=== PATIENT | female | born 1945 | race Caucasian/White ===

== ENCOUNTER 2023-11-16 12:44 | Outpatient (OUT) | payer MEDICARE, OTHER, SELFPAY ==
--- NOTE | 2023-11-16 13:02 | CT_ITS ---
[address] [address] Patient Name: ASHU SANDRA MRN: [id number] date: 1945 Sex: F Assigned Patient Location: LAB Current Patient Location: LAB Accession/Order Number: [id number] Exam Date: 11/16/2023 14:00 Report Date: 11/16/2023 15:22 At the request of: HAWK DE LA PAZ Procedure: CT abdomen pelvis wo con EXAM: CT abdomen pelvis wo con HISTORY: Incisional Hernia Without Obstruction COMPARISON: None. TECHNIQUE: CT abdomen pelvis wo con FINDINGS: LOWER CHEST: LUNG BASES / PLEURA: Normal. DISTAL ESOPHAGUS: Normal. HEART / VESSELS: No significant abnormality. ABDOMEN and PELVIS: LIVER: Normal given the limitations of noncontrast CT. BILIARY TRACT: Normal. GALLBLADDER: No abnormality. PANCREAS: Normal. SPLEEN: Normal. ADRENALS: Normal. KIDNEYS: Normal given limitations of noncontrast CT. No stone or hydroureteronephrosis. LYMPH NODES: None enlarged. STOMACH / SMALL BOWEL: There are multiple contrast-filled loops of normal caliber small bowel which extends through a large ventral abdominal wall defect. No evidence of strangulation or obstruction. The luminal contrast within small bowel extends distal to the herniated loops. 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 Large ventral abdominal wall defect containing a loop of the transverse colon without evidence of strangulation or obstruction. PERITONEUM / MESENTERY: No free fluid or air. RETROPERITONEUM: Normal. VESSELS: Moderate atherosclerotic disease of the normal caliber abdominal aorta and its major branches. URINARY BLADDER: Normal. REPRODUCTIVE ORGANS: The uterus is not visualized. There is no adnexal mass. BODY WALL: As mentioned above, there are multiple large ventral abdominal wall/incisional defects. The more cranial defect containing a loop of transverse colon measures 8.1 cm (image 26 of series 3) and the more caudal defect containing loops of small bowel measures 5.6 cm (image 75 of series 3). There is also rectus abdominis diastases at the level of the umbilicus and a small fat-containing umbilical hernia. MUSCULOSKELETAL: No acute abnormality. Grade 1 anterolisthesis of L4 on L5. CT/CT abdomen pelvis wo con IMPRESSION: Multiple large ventral abdominal wall/incisional hernias containing loops of transverse colon and small bowel without strangulation or obstruction. Electronically authenticated by: DAYNE COPELAND Date: 11/16/2023 15:22
[2023-11-16 13:14] LABS: Estimated GFR (African America 60 (>=60); Estimated GFR (Non-African Ame 49 (>=60)
== END 2023-11-16 12:45 | disposition home or self-care (01) ==
PROVIDERS: PCP Family Medicine; Visit Provider Surgery
DX: Z01.812 Encounter for preprocedural laboratory examination (principal); K43.2 Incisional hernia without obstruction or gangrene
CPT/HCPCS: 36415; 74176; 82565

== ENCOUNTER 2024-03-16 17:58 | Inpatient (IN) | payer MEDICARE, OTHER, SELFPAY ==
[2024-03-16] VITALS (12 sets, daily range): BP systolic 126–159; BP diastolic 53–70; PULSE 69–86; TEMP 37–38.4; O2SAT 92–94; BMI 31.9; BMI 31.0
--- NOTE | 2024-03-16 18:01 | ED_ITS ---
HPI HPI - General Adult General Chief complaint: Nausea/Vomiting/Diarrhea Stated complaint: NAUSEA/VOMITING Time Seen by Provider: 03/16/24 18:00 Source: patient and family History of Present Illness HPI narrative: This patient brought to emergency room by EMS vishal. She has been feeling under the weather for the last couple days with fever nausea decreased appetite. She is not oxygen dependent but because of decreased pulse oximetry to squad applied oxygen when they picked her up and brought her here to the ER. She asked clear for 5 to sick for nearly 1 week. She self diagnosed herself of having urinary tract infection because she had frequency of urination burning and the foul smell to the urine she took some [id number] pain medication but is not taking any antibiotics. She states she has a history of kidney stones and kidney infections. She says she is borderline diabetic. She has COPD. She denies any previous cardiac problems. She has mild nausea at this time. She has not had sore throat cough congestion or head cold symptoms. Related Data Home Medications ?Medication ?Instructions ?Recorded ?Confirmed candesartan 32 mg tablet 16 mg PO BID 03/16/24 03/16/24 carvedilol 25 mg tablet 25 mg PO BID 03/16/24 03/16/24 clopidogrel 75 mg tablet 75 mg PO DAILY 03/16/24 03/16/24 fluoxetine 40 mg capsule 40 mg PO DAILY 03/16/24 03/16/24 montelukast 10 mg tablet 10 mg PO DAILY 03/16/24 03/16/24 rosuvastatin 40 mg tablet 40 mg PO DAILY 03/16/24 03/16/24 trazodone 50 mg tablet 50 mg PO QPM 03/16/24 03/16/24 Allergies Allergy/AdvReac Type Severity Reaction Status Date / Time Penicillins Allergy Severe Cramping Verified 03/16/24 18:01 of the Muscles Sulfa (Sulfonamide Allergy Severe Swelling Verified 03/16/24 18:01 Antibiotics) of Lip/Tongue/Throat Opioid HPI Opioid Management Most Recent Opioid Data: No Data to Display Exam Narrative Exam Narrative: She was seen on arrival. Vital signs were noted. Her has just arrived. She is awake alert [place] x 3 very good historian. She looks ill but not toxic. Her skin is warm and dry with no cyanosis clamminess or diaphoresis. She has good pulses. She does not have hypotension. HEENT shows no focus of infection, no conjunctivitis or pharyngitis phonation and voice are normal. Neck is soft supple she does not have a severe headache or neck pain. Lungs were clear clear with no wheeze rales or rhonchi. Heart sounds show a grade 2/6 to 3/6 systolic murmur at the apex. Abdomen is benign with no rebound rigidity or peritoneal findings. Her extremities do not show any petechia purpura rash or exanthem. She has no swelling of her extremities. They are warm and dry. Neurological examination shows no focal neurological deficits or motor weaknesses. Constitutional Vital Signs, click to edit/add: Last Vital Signs Temp 101.1 F H 03/16/24 18:01 Pulse 85 03/16/24 18:01 Resp 20 03/16/24 18:01 BP 159/65 H 03/16/24 18:01 Pulse Ox 92 L 03/16/24 18:01 O2 Del Method Room Air 03/16/24 18:01 Course Vital Signs Vital signs: Vital Signs Temperature 101.1 F H 03/16/24 18:01 Pulse Rate 85 03/16/24 18:01 Respiratory Rate 20 03/16/24 18:01 Blood Pressure 159/65 H 03/16/24 18:01 Pulse Oximetry 92 L 03/16/24 18:01 Oxygen Delivery Method Room Air 03/16/24 18:01 Temperature 101.1 F H 03/16/24 18:01 Pulse Rate 85 03/16/24 18:01 Respiratory Rate 20 03/16/24 18:01 Blood Pressure 159/65 H 03/16/24 18:01 Pulse Oximetry 92 L 03/16/24 18:01 Oxygen Delivery Method Room Air 03/16/24 18:01 Medical Decision Making [facility] Narrative Medical decision making narrative: Patient presents with fever [place] fatigue decreased appetite and symptoms consistent with a UTI. Sepsis workup initiated but initially only 1 L will be given pending other laboratory evaluation. IVs were established and she was given intravenous Rocephin. Care will be turned over to the next physician at the change of shift at 1900 hrs. Initial laboratory studies show findings consistent with a UTI. Because of her history of kidney stones we will get a CT to rule out any type of obstructive phenomenon Lab Data Labs: Lab Results 03/16/24 03/16/24 Range/Units 18:05 18:25 WBC 10.9 (4.0-11.0) 10^3/uL RBC 4.30 (4.20-5.40) 10^6/uL Hgb 13.0 (12.0-16.0) g/dL Hct 39.9 (36.0-48.0) % MCV 92.8 (81.0-99.0) fL MCH 30.2 (26.7-34.0) pg MCHC 32.6 (29.9-35.2) g/dL RDW 12.6 (11.0-15.0) % Plt Count 139 L (150-450) 10^3/uL MPV 11.0 (9.5-13.5) fL Seg Neuts % (Manual) 82.0 Band Neutrophils % 9.0 H (0-5) % Lymphocytes % (Manual) 3.0 L (20.5-60.0) % Monocytes % (Manual) 5.0 (1.7-12.0) % Eosinophils % (Manual) 0.0 L (0.9-7.0) % Basophils % (Manual) 1.0 (0.2-2.0) % Neutrophils # (Manual) 8.93 H (1.4-6.5) 10^3/uL Band Neutrophils # 1.0 H (0.0-0.3) 10^3/uL Lymphocytes # (Manual) 0.32 L (1.20-3.80) 10^3/uL Monocytes # (Manual) 0.54 (0.30-0.80) 10^3/uL Eosinophils # (Manual) 0.00 (0.00-0.70) 10^3/uL Basophils # (Manual) 0.10 (0.00-0.10) 10^3/uL PT 11.7 H (9.0-11.6) sec INR 1.12 D-Dimer 2.04 H* (<=0.59) mg/L FEU VBG pH 7.485 H (7.330-7.430) VBG pCO2 32.7 L (40.0-52.0) mmHg Sodium 136 (136-145) mmol/L Potassium 4.0 (3.5-5.1) mmol/L Chloride 101 (98-107) mmol/L Carbon Dioxide 25.9 (21.0-32.0) mmol/L Anion Gap 13.1 BUN 28.0 H (7.0-18.0) mg/dL Creatinine 1.41 H (0.55-1.02) mg/dL Est GFR ( Amer) 44 L (>=60) Est GFR (Non-Af Amer) 36 L (>=60) BUN/Creatinine Ratio 19.9 Glucose 142 H (74-106) mg/dL Lactate 1.4 (0.4-2.0) mmol/L Calcium 9.0 (8.5-10.1) mg/dL Total Bilirubin 1.7 H (0.2-1.0) mg/dL AST 15 (15-37) U/L ALT 24 (14-59) U/L Alkaline Phosphatase 54 (46-116) U/L Troponin I High Sens 6.8 (4.0-51.3) pg/mL Total Protein 6.5 (6.4-8.2) g/dL Albumin 2.8 L (3.4-5.0) g/dL Globulin 3.7 g/dL Albumin/Globulin Ratio 0.8 Procalcitonin 5.92 H (0.00-0.50) ng/mL Urine Color Yellow (YELLOW) Urine Clarity Sl cloudy (CLEAR) Urine pH 6.0 (5.0-9.0) Ur Specific [place] 1.025 (1.005-1.025) Urine Protein 100 A (NEG/TRACE) mg/dL Urine Glucose (UA) Negative (NEGATIVE) mg/dL Urine Ketones Negative (NEGATIVE) mg/dL Urine Occult Blood Large A (NEGATIVE) Urine Nitrite Positive A (NEGATIVE) Urine Bilirubin Negative (NEGATIVE) Urine Urobilinogen 1.0 (0.2-1.0) EU/dL Ur Leukocyte Esterase Small A (NEGATIVE) Urine RBC 20-50 A (0-2) #/HPF Urine WBC 5-10 A (NONE SEEN) #/HPF Ur Squamous Epith Cells Few A (NONE/RARE) #/LPF Urine Crystals None seen (None Seen) #/HPF Urine Bacteria Moderate A (NONE SEEN) #/HPF Urine Casts None seen (NONE SEEN) #/LPF Urine Mucus None seen (NONE SEEN) Ur Culture Indicated? Already ordered Discharge Plan Discharge Chief Complaint: Nausea/Vomiting/Diarrhea Clinical Impression: Sepsis Patient Disposition: Still a Patient Prescriptions / Home Meds: No Action candesartan 32 mg tablet 16 mg PO BID carvedilol 25 mg tablet 25 mg PO BID clopidogrel 75 mg tablet 75 mg PO DAILY fluoxetine 40 mg capsule 40 mg PO DAILY montelukast 10 mg tablet 10 mg PO DAILY rosuvastatin 40 mg tablet 40 mg PO DAILY trazodone 50 mg tablet 50 mg PO QPM Print Language: Nigerien Referrals: WILLIAM DURHAM [Physician] - 1 week
--- NOTE | 2024-03-16 18:01 | ECG_ITS ---
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
--- NOTE | 2024-03-16 18:01 | XR_ITS ---
[address] [address] Patient Name: ASHU SANDRA MRN: [id number] date: 1945 Sex: F Assigned Patient Location: ER Current Patient Location: ED.MAIN Accession/Order Number: [id number] Exam Date: 03/16/2024 18:40 Report Date: 03/16/2024 19:46 At the request of: JULI GARCIA Procedure: XR chest 2V EXAMINATION: XR chest 2V, , 03/16/2024 6:40 PM EDT INDICATION: Sepsis HISTORY: Ordering Provider Reason for Exam: Sepsis Technologist Note: Additional: COMPARISON: None. TECHNIQUE: Chest x-ray: Two views. FINDINGS: No pneumothorax, pleural effusion or focal airspace consolidation. Heart is normal in size. Bony thorax is unremarkable. XR/XR chest 2V IMPRESSION: No acute cardiopulmonary process. Electronically authenticated by: GEORGI RODRIGUES Date: 03/16/2024 19:46
--- OUTSIDE RECORDS SUMMARY | 2024-03-16 18:04 | XMS_ITS ---
Patient Summarization (C-CDA 2.1 CCD) Created on: March 16, 2024 Sandra Mrs. Maryam Wright : 1945 Sex: Female Author Organization Sample organization Care Team Providers Care Wire Harness Assembler Name Role Phone SYMONE, DOCTOR Admitting Unavailable SYMONE, DR REIS Attending Unavailable DR WILLIAM DURHAM Primary Care Unavailable FLETCHER BARTON JR Primary Care Physician Unavailable Primary Care Provider Taras grier Unavailable Primary Care Provider ZACHERY Becerra Attending HAWK Hardy Referring Unavailable FLETCHER BARTON Referring Hawk Angeles Attending Unavailable Allergies Allergy Classification Reported Allergen(s) Allergy Type Date of Onset Reaction(s) Facility (2 sources) cloNIDine; Translations: [Catapres] Drug Allergy 4 [facility] Repository (2 sources) Penicillins; Translations: [PENICILLINS] Drug allergy (disorder) 4 [facility] Repository (1 source) Sulfonamides (Antibiotic) Drug allergy (disorder) 4 [facility] Repository (1 source) cloNIDine; Translations: [clonidine] Drug Allergy [facility] [place] (2 sources) Penicillin; Translations: [penicillin] Drug Allergy Finding of gross movement of body and limbs (finding) [facility] [place] (2 sources) Sulfonamides (Antibiotic); Translations: [sulfa drugs] Propensity to adverse reactions to drug Edema of the tongue (disorder) [facility] [place] (2 sources) Penicillins Drug Allergy 4 Anaphylaxis [facility] (3 sources) Sulfonamides (Antibiotic); Translations: [SULFA (SULFONAMIDE ANTIBIOTICS)] Drug Allergy 4 Swelling [facility] Encounters Encounter Date Encounter Type Care Provider Facility Start: 01-05-2024 ambulatory Zachery Kiser MD Work Phone: [facility] Comment on above: 05.08.24 Cure (Robot ic Complex AWR 5 hours los 2) Start: 01-05-2024 Preprocedural examin ation done Zachery Kiser MD Work Phone: [facility] Start: 01-04-2024 End: 01-05-2024 ambulatory ZACHERY KISER Facility:[facility] Start: 01-04-2024 End: 01-04-2024 Patient encounter procedure Zachery Kiser MD Work Phone: General Surgery Comment on above: Incisional hernia, w ithout obstruction or gangrene (Primary Dx) Start: 12-22-2023 Telephone encounter Eder KHALIL General Surgery Comment on above: Clinic Prep Start: 11-16-2023 Clinisync Result Encounter Generic External Data Provider [facility] External Department Unsolicited Start: 11-16-2023 Clinisync Result Encounter Generic External Data Provider [facility] External Department Unsolicited Start: 10-10-2023 End: 10-11-2023 ambulatory FLETCHER BARTON [facility] Start: 10-10-2023 End: 10-10-2023 Patient encounter procedure Hawk ALTAMIRANO General [facility] Start: 09-28-2023 ambulatory FLETCHER BARTON [facility] Start: 08-17-2021 End: 08-17-[address] DOCTOR ASHBY Facility:[facility] Immunizations Immunization Date Immunization Notes Care Provider Fa cilielan 08-09-2021 SARS-CoV-2 (COVID-19 ) mRNA-1273 vaccine Hakw ALTAMIRANO [facility] [place] 12-23-2020 SARS-CoV-2 (COVID-19 ) mRNA-1273 vaccine Hawk LEWISL [facility] [place] 11-25-2020 SARS-CoV-2 (COVID-19 ) mRNA-1273 vaccine Hawk NILL [facility] [place] NEGATED: Highlighted row has not occurred!10-10-2023 influenza virus vaccine, unspecified formulation Hawk ALTAMIRANO [facility] [place] Medications Current Medications Medication Drug Class(es) Dates Sig (Normalized) Sig (Original) acarbose 100 mg oral tablet (1 source) alpha-Glucosidase Inhibitor Start: 09-29-2023 take 1 tablet by mouth twice daily acarbose 100 mg oral tablet 100 mg = 1 tab(s), Oral, BID, Refills(s) 0 Start Date: 09/29/23 Status: Ordered budesonide 0.25 mg/ml inhalation suspension (1 source) Corticosteroid Start: 09-29-2023 take 0.5 mg by inhalation twice daily budesonide 0.5 mg/2 mL Inh Susp 0.5 mg = 2 mL, NEB, BID, Refills(s) 0 Start Date: 09/29/23 Status: Ordered candesartan cilexetil 32 mg oral tablet (3 sources) Angiotensin 2 Receptor Akira Start: 09-29-2023 Atacand 32 mg Tab 16 mg = 0.5 tab(s), Oral, BID, Refills(s) 0 Start Date: 09/29/23 Status: Ordered candesartan cile xetil (ATACAND ORAL) Take by mouth. 0 Active Comment on above: Take by mouth. carvedilol 25 mg oral tablet (3 sources) alpha-Adrenergic Akira, beta-Adrenergic Akira Start: 09-29-2023 take 1 tablet by mouth twice daily carvedilol 25 mg Tab 25 mg = 1 tab(s), Oral, BID, Refills(s) 0 Start Date: 09/29/23 Status: Ordered carvedilol (CORE G ORAL) Take by mouth. 0 Active Comment on above: Take by mouth. clopidogrel 75 mg oral tablet (3 sources) P2Y12 Platelet Inhibitor Start: 09-29-2023 take 1 tablet by mouth once daily Plavix 75 mg Tab 75 mg = 1 tab(s), Oral, Daily, Refills(s) 0 Start Date: 09/29/23 Status: Ordered clopidogrel bisu lfate (PLAVIX ORAL) Take by mouth. 0 Active Comment on above: Take by mouth. dapagliflozin 10 mg oral tablet (1 source) Sodium-Glucose Cotransporter 2 Inhibitor Start: Farxiga 10 mg oral tablet 10 mg = 1 tab(s), Oral, MonWedFri, Refills(s) 0 Start Date: 09/29/23 Status: Ordered ezetimibe 10 mg oral tablet (3 sources) Dietary Cholesterol Absorption Inhibitor Start: 3 take 5 mg by mouth once daily Zetia 10 mg Tab 5 mg = 0.5 tab(s), Oral, Daily, Refills(s) 0 Start Date: 09/29/23 Status: Ordered ezetimibe (ZETIA ORAL) Take by mouth. 0 Active Comment on above: Take by mouth. FLUoxetine 20 mg oral capsule (3 sources) Serotonin Reuptake Inhibitor Start: 09-29-2023 take 1 capsule by mouth once daily Prozac 20 mg Cap 20 mg = 1 cap(s), Oral, Daily, Refills(s) 0 Start Date: 09/29/23 Status: Ordered fluoxetine HCl ( PROZAC ORAL) Take by mouth. 0 Active Comment on above: Take by mouth. fluticasone propionate 0.05 mg/actuat metered dose nasal spray (1 source) Corticosteroid Start: 3 Flonase 0.05 mg/inh [place] 2 puff(s), Nasal, BID, Refill(s) 0 Start Date: 09/29/23 Status: Ordered montelukast 10 mg oral tablet (3 sources) Leukotriene Receptor Antagonist Start: 3 take 1 tablet by mouth once daily Singulair 10 mg Tab 10 mg = 1 tab(s), Oral, Daily, Refills(s) 0 Start Date: 09/29/23 Status: Ordered montelukast sodi um (SINGULAIR ORAL) Take by mouth. 0 Active Comment on above: Take by mouth. revefenacin 0.0583 mg/ml inhalation solution (1 source) Start: 3 take 175 ug by inhalation once daily Yupelri 175 mcg/3 mL inhalation solution 175 mcg, Inhalation, Daily, Refills(s) 0 Start Date: 09/29/23 Status: Ordered rosuvastatin calcium 40 mg oral tablet (3 sources) HMG-CoA Reductase Inhibitor Start: 3 take 1 tablet by mouth once daily Crestor 40 mg Tab 40 mg = 1 tab(s), Oral, Daily, Refills(s) 0 Start Date: 09/29/23 Status: Ordered take 1 tablet by mouth once dana y rosuvastatin (CRESTOR) 10 mg tablet Take 10 mg by mouth once daily. 0 Active Comment on above: Take 10 mg by mouth once daily. traZODone hydrochloride 50 mg oral tablet (3 sources) Serotonin Reuptake Inhibitor Start: take 1 tablet by mouth once daily at bedtime traZODONE 50 mg Tab 50 mg = 1 tab(s), Oral, Once a day (at bedtime), Refills(s) 0 Start Date: 09/29/23 Status: Ordered trazodone HCl (D ESYREL ORAL) Take by mouth. 0 Active Comment on above: Take by mouth. Vitamin D3 2000 intl units oral Tab (1 source) Start: 09-29-2023 take 1 tablet by mouth once daily Vitamin D3 2000 intl units oral Tab 50 mcg, Oral, Daily, tab(s), Refills(s) 0 Start Date: 09/29/23 Status: Ordered Completed/Discontinued Medications Medication Drug Class(es) Dates Sig (Normalized) Sig (Original) cholecalciferol 0.125 mg oral tablet (2 sources) Vitamin D take 1 tablet by mouth once daily cholecalciferol (VITAMIN D-3) 5,000 unit tab Take 5,000 Units by mouth once daily. 0 Active Comment on above: Take 5,000 Units by mouth once daily. Payers Date Payer Category Payer Unknown MMO MMO MEDICARE SUPPLEMENT [id number] 2021-Present [phone] [address] [place] [address] Indemnity [id number] 2017 Medicare [id number] 2011 Medicare MEDICARE MEDICAR E A AND B [id number] 2011-Present [phone] [address] [address] [place] [address] Medicare [id number] 1959 Medicare [id number] 1959 Unknown [id number] 1945 Unknown [id number] 1945 Unknown [id number] 1945 Unknown [id number] Plan of Treatment Date Care Activity Detail Author Start: 02-05-2024 End: 06-16-2024 aPTT in Platelet poor plasma by Coagulation assay ACTIVATED PTT Lab Routine Preoperative examination Incisional hernia, without obstruction or gangrene Abnormal coagulation profile Expected: 02/05/2024, Expires: 06/16/2024 [facility] Work Phone: Comment on above: Expected: 02/05/2024 , Expires: 06/16/2024 Start: 02-05-2024 End: 06-16-2024 CBC W Auto Differential panel - Blood CBC + DIFF Lab Routine Preoperative examination Incisional hernia, without obstruction or gangrene Expected: 02/05/2024, Expires: 06/16/2024 [facility] Work Phone: Comment on above: Expected: 02/05/2024 , Expires: 06/16/2024 Start: 02-05-2024 End: 06-16-2024 Comprehensive metabolic 2000 panel - Serum or Plasma COMP METABOLIC PANEL Lab Routine Preoperative examination Incisional hernia, without obstruction or gangrene Expected: 02/05/2024, Expires: 06/16/2024 [facility] Work Phone: Comment on above: Expected: 02/05/2024 , Expires: 06/16/2024 Start: 02-05-2024 End: 06-16-2024 PT panel - Platelet poor plasma by Coagulation assay PROTHROMBIN TIME/PT Lab Routine Preoperative examination Incisional hernia, without obstruction or gangrene Abnormal results of liver function studies Expected: 02/05/2024, Expires: 06/16/2024 [facility] Work Phone: Comment on above: Expected: 02/05/2024 , Expires: 06/16/2024 Start: 02-05-2024 End: 06-16-2024 TYPE AND SCREEN,30 DAY TYPE AND SCREEN,30 DAY Blood Bank Routine Preoperative examination Incisional hernia, without obstruction or gangrene Expected: 02/05/2024, Expires: 06/16/2024 [facility] Work Phone: Comment on above: Expected: 02/05/2024 , Expires: 06/16/2024 Start: 10-16-2023 Advance Directive Discussion Advance Directive Discussion [facility] Start: 10-16-2023 Depression Assessment Depression Ass essment [facility] Start: 06-16-2023 Covid-19 Vaccine () Covid-19 Vaccine () [facility] Start: 06-16-2023 Influenza vaccination Influenza Vacc ine (#1) [facility] Start: 01-01-2012 Pneumococcal Vaccine : 65+ (1 of 1 - PCV) Pneumococcal Vaccine: 65+ (1 of 1 - PCV) [facility] Start: 01-01-2012 Screening for osteoporosis Bone Density Screening [facility] Start: 2006 RSV Vaccine (1 - 1-d ose 60+ series) RSV Vaccine (1 - 1-dose 60+ series) [facility] Start: 1996 Shingrix Vaccine (1 of 2) Shingrix Vaccine (1 of 2) [facility] Start: 01-01-1992 Diabetes Screening Diabetes Screenin g [facility] Start: 1965 Urine microalbumin profile DTaP,Tdap,Td Vaccine (1 - Tdap) [facility] Start: 1964 Hepatitis C screening Hepatitis C Sc bj [facility] Start: 07-03-1947 Covid-19 Vaccine (#1) Covid-19 Vacci ne (#1) [facility] End: 01-04-2025 ECG COMPLETE ECG COMPLETE ECG Routine Preoperative examination Incisional hernia, without obstruction or gangrene 1 Occurrences starting 01/08/2024 until 01/04/2025 [facility] Work Phone: Comment on above: 1 Occurrences starti ng 01/08/2024 until 01/04/2025 REFER FOR ADMIT INTERVIEW REFER FOR ADMIT INTERVIEW Procedures Routine Preoperative examination Incisional hernia, without obstruction or gangrene Ordered: 01/08/2024 [facility] Work Phone: Comment on above: Ordered: 01/08/2024 [facility] Problems Problem Classification Problem Date Documented Date Episodic/Chronic Abdominal hernia (5 sources) Incisional hernia; Translations: [Incisional hernia without obstruction or gangrene] Onset: 10-10-2023 Episodic Chronic obstructive pulmonary disease and bronchiectasis (1 source) Chronic obstructive lung disease 09-29-2023 Chronic Diabetes mellitus without complication (1 source) Diabetes mellitus 09-29-2023 Chronic Disorders of lipid metabolism (1 source) Hyperlipidemia 09-29-2023 Chronic Esophageal disorders (1 source) Gastroesophageal reflux disease 09-29-2023 Chronic Essential hypertension (1 source) Hypertensive disorder 09-29-2023 Chronic Mood disorders (1 source) Depressive disorder 09-29-2023 Chronic Nutritional deficiencies (1 source) Vitamin D deficiency 09-29-2023 Chronic Other diseases of kidney and ureters (1 source) Cyst of kidney 09-29-2023 Episodic Other nutritional; endocrine; and metabolic disorders (1 source) Body mass index 30+ - obesity 10-10-2023 Chronic Other nutritional; endocrine; and metabolic disorders (1 source) Obesity 10-10-2023 Chronic Other screening for suspected conditions (not mental disorders or infectious disease) (6 sources) Encounter for screening, unspecified; Translations: [Liver function tests abnormal] Onset: 08-17-2021 Episodic Other upper respiratory disease (1 source) Allergic rhinitis 09-29-2023 Chronic Peripheral and visceral atherosclerosis (1 source) Abdominal aortic atherosclerosis 09-29-2023 Chronic Residual codes; unclassified (1 source) Insomnia 09-29-2023 Episodic Procedures Date Procedure Procedure Detail Performing Clinician Start: 11-16-2023 [facility] CREATININE Generic External Data Provider Start: 10-16-2013 Placement of stent i n coronary artery Hawk ALTAMIRANO Excision of cyst of ovary Mi yakov BRAIN Extraction of cataract Oscar micheal ALTAMIRANO Intestinal obstructi on (disorder) Hawk ALTAMIRANO Results Test Name Value Interpretation Reference Range Facility Consultation Noteon 01-14-20 24 Consultation Note [id number] .00TIFF Normal [facility] CNOVon 01-04-2024 CNOV Office Visit (PEDRO ) MARYAM SANDRA ([id number]) 1945 F Date Time Provider Department 01/04/24 1:00 PM ZACHERY KISER During your visit today, we recorded the following information about you: Temperature Pulse Blood pressure Weight 97.4 degrees 68/minute 197/82 66.2 kg Height 1.499 m Christy Yoder 01/04/2024 1:57 PM Signed [facility] Abdominal [facility] - HISTORY AND PHYSICAL Chief Complaint: Ventral Incision Hernia HPI: Maryam Sandra is a 78 year old female who presents with a ventral incision hernia. She has a history of uterine cancer with subsequent RADHA and oopherectomy in 1973. Additionally in 2013, she was diangosed with a bowel obstruction after a routine colonoscopy with subsequent left hemicolectomy with splenic mobilization and salpingoopherectomy. Patient states that there was no cancer of the colon. She states that she noticed a left lower abdominal bulge immediately after this surgery, with development of another bulge one year ago. She received a CAT scan which demonstrated sizable hernias. She reports no pain near sites of hernia until last week where she now feels soreness in the lower left quadrant. The upper left quadrant sometimes causes her to be short of breath when she is bent over. No N/V, no issue with bowel movement, or urination (sometimes has trouble emptying bladder). She is currently on Plavix after coronary artery stent placement in 2013. PMH: COPD, hx of uterine cancer, abdominal aortic atherosclerosis, coronary artery stent, elevated BMI, depression, HTN, HLD Relevant previous operations include: RADHA + oopherectomy in 1973, ex-lap, salpingoopherectomy + left hemicolectomy with splenic mobilization in 2013, coronary artery stent in 2013 Major Depression, on Prozac. Independent No employment None Hypertension, COPD, Anti-platelet medications History of open abdomen No past medical history on file. No past surgical history on file. Social History Tobacco Use Smoking status: Former Types: Cigarettes Quit date: 1983 Years since quittin.2 Substance Use Topics Alcohol use: Never Drug use: Never Additional social history not relevant to the patient's HPI No family history on file. Additional family history not relevant to the patient's HPI ALLERGIES Allergen Reactions Penicillins Anaphylaxis seizures Sulfa (Sulfonamide * Swelling Tongue swelling Current Outpatient Medications Medication Sig Dispense Refill rosuvastatin (CRESTOR) 10 mg tablet Take 10 mg by mouth once daily. trazodone HCl (DESYREL ORAL) Take by mouth. ezetimibe (ZETIA ORAL) Take by mouth. carvedilol (COREG ORAL) Take by mouth. candesartan cilexetil (ATACAND ORAL) Take by mouth. clopidogrel bisulfate (PLAVIX ORAL) Take by mouth. montelukast sodium (SINGULAIR ORAL) Take by mouth. fluoxetine HCl (PROZAC ORAL) Take by mouth. cholecalciferol (VITAMIN D-3) 5,000 unit tab Take 5,000 Units by mouth once daily. No current facility-administered medications for this visit. REVIEW OF SYSTEMS The remainder of the 12 review of systems is negative other than what was mentioned in the HPI and above. BP 197/82 Pulse 68 Temp 36.3 ?C (97.4 ?F) (Tympanic) Ht 149.9 cm (4' 11 ) Wt 66.2 kg (146 lb) BMI 29.49 kg/m? Physical Exam Constitutional: The patient is well-developed, well-nourished, and in no distress. Head and Neck: Normocephalic and atraumatic. Neck has normal range of motion. Pulmonary/Chest: Effort normal Abdominal: Soft. Two abdominal bulges are present in upper and lower left quadrants, with another bulge present in right lower quadrant below abdominal skin fold. Musculoskeletal: Normal range of motion. Neurological: She is alert. GCS score is 15. Skin: Skin is warm and dry. Psychiatric: Affect and judgment normal. Relevant Hernia Findings - Two abdominal bulges are present in upper and lower left quadrants, with another bulge present in right lower quadrant below abdominal skin fold. LABS: No results found for: HBA1C IMAGING - Reviewed with staff CT - 11/16/23: Per radiology report Large ventral abdominal wall defect containing a loop of the transverse colon without evidence of strangulation or obstruction Assessment: Maryam Sandra is a 78 year old female with PMH of coronary artery stent placement (on Plavix), COPD, HTN, hx of uterine cancer who presents with multiple ventral incisional hernias. She states that symptoms she is experiencing include abdominal soreness and shortness of breath while bent over. She would like to pursue surgery, but specifically wanted to approach it via robot. Patient was advised that a robotic surgery is possible, but that there was potential to covert to an open approach if necessary. Patient agreed and consent for surgery was obtained. Plan: - Abdom (more content not included)... Normal [facility] CNPNon 12-22-2023 CNPN Telephone (PEDRO) MARYAM SANDRA ([id number]) 1945 F Date Time Provider Department 12/22/23 EDER MELARA During your visit today, we recorded the following information about you: Eder Melara OCCA 12/22/2023 1:02 PM Signed Called patient to request recent imaging and PSHx. Patient has CT at [place] (faxed request for imaging to be pushed), surgeries were performed at [place]. Faxed request for reports. Jean Melara EMT-P, OCCA Buettner, William, OCCA 12/22/2023 3:37 PM Signed Received 1 operative note from [place], sent for scanning. Jean Melara EMT-P, OCCA Allergies As of Date: 12/22/2023 (Not on File) Date Reviewed: Never Reviewed Reason for Visit: Clinic Prep [Other] Problem List As Of Date: 12/22/2023 (None) Encounter Status:Closed by EDER MELARA on 12/22/23 Normal [facility] RAD - CT Reporton 11-24-2023 RAD - CT Report [id number] .00TIFF Normal [facility] Lab Reportson 11-21-2023 Lab Reports [id number] .00TIFF Normal [facility] TB CREATININEon 11-16-2023 Creatinine [Mass/Vol] 1.08 mg/dL High 0.55 - 1.02 mg/dL [facility] GFR/1.73 sq M.predicted CKD-EPI (S/P/Bld) [Vol rate/Area] 60 60 - PINF [facility] Interpretation and review of laboratory results Abnormal [facility] Healthcare [facility] EGFR-NON AF MALAGASY 49 Low 60 - PINF [facility] Healthcare [facility] Healthcar e Facesheeton 10-11-2023 Facesheet [id number] .00TIFF Normal [facility] Ambulatory Visit Summaryon 1 12-11-2022 Ambulatory Visit Summary SANDRA MARYAM L :1945 Visit Date:10/10/2023 Ambulatory Visit Instructions Your Care Team Attending Physician - Hawk ALTAMIRANO MD Primary Care Physician - FLETCHER BARTON JR, DO Referring Physician - FLETCHER BARTON JR, DO This Is Your Medications List Contact prescribing physician if questions or concerns acarbose (acarbose 100 mg oral tablet) budesonide (budesonide 0.5 mg/2 mL Inh Susp) candesartan (Atacand 32 mg Tab) carvedilol (carvedilol 25 mg Tab) cholecalciferol (Vitamin D3 2000 intl units oral Tab) clopidogrel (Plavix 75 mg Tab) dapagliflozin (Farxiga 10 mg oral tablet) ezetimibe (Zetia 10 mg Tab) fluoxetine (Prozac 20 mg Cap) fluticasone nasal (Flonase 0.05 mg/inh [place]) montelukast (Singulair 10 mg Tab) revefenacin (Yupelri 175 mcg/3 mL inhalation solution) rosuvastatin (Crestor 40 mg Tab) trazodone (traZODONE 50 mg Tab) Procedures Performed Insertion of coronary artery stent (2013), Abdominal hysterectomy, Bowel obstruction, Cataract extraction, Ovarian cystectomy. Discharge Vitals Heart Rate (Peripheral) 76 Respiratory Rate 16 Blood Pressure 154/86 Height 149 cm Height 59 in Weight 71.2 kg Weight 156.64 lb BMI 32.07 Medications What How Much When Instructions Unchanged acarbose (acarbose 100 mg oral tablet) 1 Tablets By Mouth 2 times a day Contact prescribing physician if questions or concerns Unchanged budesonide (budesonide 0.5 mg/ 2 mL Inh Susp) 2 Milliliter Nebulized inhalation (aerosol) 2 times a day Contact prescribing physician if questions or concerns Unchanged candesartan (Atacand 32 mg Tab) 0.5 Tablets By Mouth 2 times a day Contact prescribing physician if questions or concerns Unchanged carvedilol (carvedilol 25 mg Tab) 1 Tablets By Mouth 2 times a day Contact prescribing physician if questions or concerns Unchanged cholecalciferol (Vitamin D3 2000 intl units oral Tab) 50 Microgram By Mouth Every day Contact prescribing physician if questions or concerns Unchanged clopidogrel (Plavix 75 mg Tab) 1 Tablets By Mouth Every day Contact prescribing physician if questions or concerns Unchanged dapagliflozin (Farxiga 10 mg oral tablet) 1 Tablets By Mouth Monday Contact prescribing physician if questions or concerns Unchanged ezetimibe (Zetia 10 mg Tab) 0.5 Tablets By Mouth Every day Contact prescribing physician if questions or concerns Unchanged fluoxetine (Prozac 20 mg Cap) 1 Capsules By Mouth Every day Contact prescribing physician if questions or concerns Unchanged fluticasone nasal (Flonase 0.05 mg/ inh [place]) 2 Puffs Nasal Inhalation 2 times a day Contact prescribing physician if questions or concerns Unchanged montelukast (Singulair 10 mg Tab) 1 Tablets By Mouth Every day Contact prescribing physician if questions or concerns Unchanged revefenacin (Yupelri 175 mcg/ 3 mL inhalation solution) 175 Microgram Inhalation Every day Contact prescribing physician if questions or concerns Unchanged rosuvastatin (Crestor 40 mg Tab) 1 Tablets By Mouth Every day Contact prescribing physician if questions or concerns Unchanged trazodone (traZODONE 50 mg Tab) 1 Tablets By Mouth Once a day (at bedtime) Contact prescribing physician if questions or concerns Medications and Immunizations Administered Not Given influenza virus vaccine, inactivated, Patient Refuses Allergies Catapres penicillin (Gross movement of body and limbs - finding) sulfa drugs (Edema of the tongue) Problems Ongoing - Any problem that you are currently receiving treatment for. Abdominal aortic atherosclerosis Allergic rhinitis BMI 32.0-32.9,adult Chronic obstructive pulmonary disease Depression Diabetes GERD (gastroesophageal reflux disease) HTN (hypertension) Hyperlipidemia Insomnia Obesity Renal cyst Vitamin D deficiency Patient Survey You may receive a survey via text or e-mail asking about your office visit. Please share your experience with us by completing your survey. We appreciate your feedback and thank you for choosing us for your care. [facility] Physician Referralon 023 Physician Referral [phone] [id number] [facility] Social History Date Type Detail Facility Start: 01-04-2024 Sex Assigned At Female F [facility] Start: 01-04-2024 Alcohol intake Lifetime non-d hyun (finding) [facility] Start: 01-04-2024 History of Social function [facility] Start: 10-10-2023 End: 01-04-2024 Tobacco smoking status Ex-smoker (finding) [facility] [place] Start: 1945 Sex Assigned At Not on file [facility] Tobacco smoking status Never [facility] [place] Tobacco smoking status [facility] Tobacco smoking consumption unknown [facility] End: 10-16-1983 History of tobacco use Current smoker [facility] End: 10-16-1983 History of tobacco use Cigarette Smoker [facility] Vital Signs Date Time Vital Sign Value Performing Clinician Facility 01-04-2024 13:02040 Body height 149.9 cm Zachery Kiser MD Work Phone: [facility] 01-04-2024 13:02-0400 Body temperature 97.39 [degF] Zachery Kiser MD Work Phone: [facility] 01-04-2024 13:02-040 Body weight 66.22 kg Zachery Kiser MD Work Phone: [facility] 01-04-2024 13:02-0400 Diastolic blood pressure 82 mm[Hg] Zachery Kiser MD Work Phone: [facility] 01-04-2024 13:02-0400 Heart rate 68 /min Zachery Kiser MD Work Phone: [facility] 01-04-2024 13:02-0400 Systolic blood pressure 197 mm[Hg] Zachery Kiser MD Work Phone: [facility] 10-10-2023 14:38-0500 Blood Pressure Location Hawk [facility] [place] 10-10-2023 14:38-0500 Diastolic blood pressure 86 mm[Hg] Hawk N[facility] [place] 10-10-2023 14:38-0500 Heart rate 76 /min Hawk NILL [facility] [place] 10-10-2023 14:38-0500 Respiratory rate 16 /min Hawk NILL [facility] [place] 10-10-2023 14:38-0500 Systolic blood pressure 154 mm[Hg] Hawk NILL [facility] Functional Status Date Assessment Result Facility 10-10-2023 Functional Status N/A [facility] Clinical Notes 10-10-2023 to 01-04-2024 Zachery Kiser MD - 01/04/2024 3:50 PM Christy Crump - 01/04/2024 12:51 PM Dinah Boudreaux MA - 01/04/2024 1:09 PM EDT Note Date & Type Note Facility 01-04-2024 Note HNO ID: [id number] Author: ZACHERY KISER MD Service: ? Author Type: Physician Type: Progress Notes Filed: 01/04/2024 15:53 Note Text: Consultation requested by Dr. Hawk Altamirano for an opinion regarding incisional hernia. My final recommendations will be communicated back to the requesting physician by way of shared medical record or letter via US mail. Maryam Sandra is a 78 year old female who presents with an incisional hernia after an ex lap for RADHA-BSO initially (benign) and then another open left colectomy for a benign colonic stricture. She has since developed a large midline incisional hernia that is painful. We discussed ROVHR and she declined. Will plan for robotic, possible open, incisional hernia repair with mesh. I have seen and evaluated the patient and discussed the case with the resident physician. I agree with the assessment and plan as documented in the resident?s note including a ROS that was reviewed and negative other than what was indicated in our notes. Patient consented for study? No: Patient declined [facility] 01-04-2024 History of Present illness Narrative Consultation requested by Dr. Hawk Altamirano for an opinion regarding incisional hernia. My final recommendations will be communicated back to the requesting physician by way of shared medical record or letter via US mail. Maryam Sandra is a 78 year old female who presents with an incisional hernia after an ex lap for RADHA-BSO initially (benign) and then another open left colectomy for a benign colonic stricture. She has since developed a large midline incisional hernia that is painful. We discussed ROVHR and she declined. Will plan for robotic, possible open, incisional hernia repair with mesh. I have seen and evaluated the patient and discussed the case with the resident physician. I agree with the assessment and plan as documented in the resident s note including a ROS that was reviewed and negative other than what was indicated in our notes. Patient consented for study? No: Patient declined [facility] - HISTORY AND PHYSICAL Chief Complaint: Ventral Incision Hernia HPI: Maryam Sandra is a 78 year old female who presents with a ventral incision hernia. She has a history of uterine cancer with subsequent RADHA and oopherectomy in 1973. Additionally in 2013, she was diangosed with a bowel obstruction after a routine colonoscopy with subsequent left hemicolectomy with splenic mobilization and salpingoopherectomy. Patient states that there was no cancer of the colon. She states that she noticed a left lower abdominal bulge immediately after this surgery, with development of another bulge one year ago. She received a CAT scan which demonstrated sizable hernias. She reports no pain near sites of hernia until last week where she now feels soreness in the lower left quadrant. The upper left quadrant sometimes causes her to be short of breath when she is bent over. No N/V, no issue with bowel movement, or urination (sometimes has trouble emptying bladder). She is currently on Plavix after coronary artery stent placement in 2013. PMH: COPD, hx of uterine cancer, abdominal aortic atherosclerosis, coronary artery stent, elevated BMI, depression, HTN, HLD Relevant previous operations include: RADHA + oopherectomy in 1973, ex-lap, salpingoopherectomy + left hemicolectomy with splenic mobilization in 2013, coronary artery stent in 2013 Major Depression, on Prozac. Independent No employment None Hypertension, COPD, Anti-platelet medications History of open abdomen No past medical history on file. No past surgical history on file. Social History Tobacco Use Smoking status: Former Types: Cigarettes Quit date: 1983 Years since quittin.2 Substance Use Topics Alcohol use: Never Drug use: Never Additional social history not relevant to the patient's HPI No family history on file. Additional family history not relevant to the patient's HPI ALLERGIES Allergen Reactions Penicillins Anaphylaxis seizures Sulfa (Sulfonamide * Swelling Tongue swelling Current Outpatient Medications Medication Sig Dispense Refill rosuvastatin (CRESTOR) 10 mg tablet Take 10 mg by mouth once daily. trazodone HCl (DESYREL ORAL) Take by mouth. ezetimibe (ZETIA ORAL) Take by mouth. carvedilol (COREG ORAL) Take by mouth. candesartan cilexetil (ATACAND ORAL) Take by mouth. clopidogrel bisulfate (PLAVIX ORAL) Take by mouth. montelukast sodium (SINGULAIR ORAL) Take by mouth. fluoxetine HCl (PROZAC ORAL) Take by mouth. cholecalciferol (VITAMIN D-3) 5,000 unit tab Take 5,000 Units by mouth once daily. No current facility-administered medications for this visit. REVIEW OF SYSTEMS The remainder of the 12 review of systems is negative other than what was mentioned in the HPI and above. BP 197/82 Pulse 68 Temp 36.3 C (97.4 F) (Tympanic) Ht 149.9 cm (4' 11 ) Wt 66.2 kg (146 lb) BMI 29.49 kg/m Physical Exam Constitutional: The patient is well-developed, well-nourished, and in no distress. Head and Neck: Normocephalic and atraumatic. Neck has normal range of motion. Pulmonary/Chest: Effort normal Abdominal: Soft. Two abdominal bulges are present in upper and lower left quadrants, with another bulge present in right lower quadrant below abdominal skin fold. Musculoskeletal: Normal range of motion. Neurological: She is alert. GCS score is 15. Skin: Skin is warm and dry. Psychiatric: Affect and judgment normal. Relevant Hernia Findings - Two abdominal bulges are present in upper and lower left quadrants, with another bulge present in right lower quadrant below abdominal skin fold. LABS: No results found for: HBA1C IMAGING - Reviewed with staff CT - 11/16/23: Per radiology report Large ventral abdominal wall defect containing a loop of the transverse colon without evidence of strangulation or obstruction Assessment: Maryam Sandra is a 78 year old female with PMH of coronary artery stent placement (on Plavix), COPD, HTN, hx of uterine cancer who presents with multiple ventral incisional hernias. She states that symptoms she is experiencing include abdominal soreness and shortness of breath while bent over. She would like to pursue surgery, but specifically wanted to approach it via robot. Patient was advised that a robotic surgery is possible, but that there was potential to covert to an open approach if necessary. Patient agreed and consent for surgery was obtained. Plan: - Abdominal Wall Reconstruction with Mesh Placement, patient consent was obtained, needs to be scheduled. Christy Yoder MS3 01/04/24 1:55PM documented in this encounter [facility] 01-04-2024 Note HNO ID: [id number] Author: ?, ?, ? Service: ? Author Type: ? Type: Progress Notes Filed: 01/04/2024 13:57 Note Text: [facility] - HISTORY AND PHYSICAL Chief Complaint: Ventral Incision Hernia HPI: Maryam Sandra is a 78 year old female who presents with a ventral incision hernia. She has a history of uterine cancer with subsequent RADHA and oopherectomy in 1973. Additionally in 2013, she was diangosed with a bowel obstruction after a routine colonoscopy with subsequent left hemicolectomy with splenic mobilization and salpingoopherectomy. Patient states that there was no cancer of the colon. She states that she noticed a left lower abdominal bulge immediately after this surgery, with development of another bulge one year ago. She received a CAT scan which demonstrated sizable hernias. She reports no pain near sites of hernia until last week where she now feels soreness in the lower left quadrant. The upper left quadrant sometimes causes her to be short of breath when she is bent over. No N/V, no issue with bowel movement, or urination (sometimes has trouble emptying bladder). She is currently on Plavix after coronary artery stent placement in 2013. PMH: COPD, hx of uterine cancer, abdominal aortic atherosclerosis, coronary artery stent, elevated BMI, depression, HTN, HLD Relevant previous operations include: RADHA + oopherectomy in 1973, ex-lap, salpingoopherectomy + left hemicolectomy with splenic mobilization in 2013, coronary artery stent in 2013 Major Depression, on Prozac. Independent No employment None Hypertension, COPD, Anti-platelet medications History of open abdomen No past medical history on file. No past surgical history on file. Social History Tobacco Use Smoking status: Former Types: Cigarettes Quit date: 1983 Years since quittin.2 Substance Use Topics Alcohol use: Never Drug use: Never Additional social history not relevant to the patient's HPI No family history on file. Additional family history not relevant to the patient's HPI ALLERGIES Allergen Reactions Penicillins Anaphylaxis seizures Sulfa (Sulfonamide * Swelling Tongue swelling Current Outpatient Medications Medication Sig Dispense Refill rosuvastatin (CRESTOR) 10 mg tablet Take 10 mg by mouth once daily. trazodone HCl (DESYREL ORAL) Take by mouth. ezetimibe (ZETIA ORAL) Take by mouth. carvedilol (COREG ORAL) Take by mouth. candesartan cilexetil (ATACAND ORAL) Take by mouth. clopidogrel bisulfate (PLAVIX ORAL) Take by mouth. montelukast sodium (SINGULAIR ORAL) Take by mouth. fluoxetine HCl (PROZAC ORAL) Take by mouth. cholecalciferol (VITAMIN D-3) 5,000 unit tab Take 5,000 Units by mouth once daily. No current facility-administered medications for this visit. REVIEW OF SYSTEMS The remainder of the 12 review of systems is negative other than what was mentioned in the HPI and above. BP 197/82 Pulse 68 Temp 36.3 ?C (97.4 ?F) (Tympanic) Ht 149.9 cm (4' 11 ) Wt 66.2 kg (146 lb) BMI 29.49 kg/m? Physical Exam Constitutional: The patient is well-developed, well-nourished, and in no distress. Head and Neck: Normocephalic and atraumatic. Neck has normal range of motion. Pulmonary/Chest: Effort normal Abdominal: Soft. Two abdominal bulges are present in upper and lower left quadrants, with another bulge present in right lower quadrant below abdominal skin fold. Musculoskeletal: Normal range of motion. Neurological: She is alert. GCS score is 15. Skin: Skin is warm and dry. Psychiatric: Affect and judgment normal. Relevant Hernia Findings - Two abdominal bulges are present in upper and lower left quadrants, with another bulge present in right lower quadrant below abdominal skin fold. LABS: No results found for: HBA1C IMAGING - Reviewed with staff CT - 11/16/23: Per radiology report Large ventral abdominal wall defect containing a loop of the transverse colon without evidence of strangulation or obstruction Assessment: Maryam Sandra is a 78 year old female with PMH of coronary artery stent placement (on Plavix), COPD, HTN, hx of uterine cancer who presents with multiple ventral incisional hernias. She states that symptoms she is experiencing include abdominal soreness and shortness of breath while bent over. She would like to pursue surgery, but specifically wanted to approach it via robot. Patient was advised that a robotic surgery is possible, but that there was potential to covert to an open approach if necessary. Patient agreed and consent for surgery was obtained. Plan: - Abdominal Wall Reconstruction with Mesh Placement, patient consent was obtained, needs to be scheduled. Christy Yoder MS3 01/04/24 1:55PM [facility] 01-04-2024 Nurse Note What is the reason for your visit today? Consult Who is your referring physician? Nill Are you having poor oral intake? NO Have you had unintentional weight loss of 15 lbs/7 Kg in the last 3-6 months? NO Bowels: regular Wound: clean & dry Temperature: No Drains: No documented in this encounter [facility] 12-22-2023 Miscellaneous Notes Received 1 operative note from [place], sent for scanning. Jean Melara EMT-P, OCCA Called patient to request recent imaging and PSHx. Patient has CT at [place] (faxed request for imaging to be pushed), surgeries were performed at [place]. Faxed request for reports. Jean Melara EMT-P, OCCA documented in this encounter [facility] 10-10-2023 Note Chief Complaint consultation for hernia HPI Staff 77 year old female presents on consultation from Dr. Barton for left inguinal hernia. Reports she noted left inguinal bulge several years ago. Reports this has gradually increased in size. She has tried to reduce this but is not successful. Denies discomfort, nausea, vomiting or bowel changes. No imaging completed. Patient on Plavix for history of cardiac stent. History of Present Illness 77 yo female with h/o CAD, htn, hyperlipidemia, COPD, GERD, depression; referred for hernia; patient reports over 1 year h/o bulge in left abd, found on office US; denies pain, area spontaneously reduces when she lies down; no skin changes, no N/V or bowel changes; no imaging; h/o RADHA via Pfannenstiel incision, also exploratory laparotomy 8 years ago via midline incision; on Plavix daily, no asa; no NSAID use; no tobacco use. Review of Systems PHQ Score Initial Depression Screen Score: 0 SCORE ROS - Provider Constitutional: no fever, no sweats, no weight loss. Eyes: no glasses, no blurred vision, no visual loss. ENMT: no dentures, no hoarseness, no swallowing difficulties, no hearing loss, no ear infection(s), no nose bleeds. Cardiovascular: normal blood pressure, no chest pain, regular heartbeat, no heart murmur. Respiratory: no shortness of breath, no cough, no asthma, no wheezing. Gastrointestinal: no nausea, no vomiting, no diarrhea, no constipation, no blood in stool, no change in bowel habits, no abdominal pain, no hepatitis. Genitourinary: no kidney stones, no urine infection, no dysuria. Musculoskeletal: no pain, no weakness. Skin: no changing moles, no rash, no skin lumps. Neurologic: no seizures, no epilepsy, no headache. Psychiatric: no emotional or psychiatric problem. Heme/Lymph: no bleeding problems, no anemia, no blood clots, no transfusions. Allergy/Immunologic: no swollen lymph nodes/glands, no IV drug abuse. Other: Additional ROS info: Except as noted in the above Review of Systems and in the History of Present Illness, all other systems have been reviewed and are negative or noncontributory. Physical Exam Vitals & Measurements HR: 76(Peripheral) RR: 16 BP: 154/86 HT: 59 in HT: 149 cm WT: 71.2 kg WT: 156.64 lb BMI: 32.07 HEENT: normal conjunctiva, sclera clear, no scleral icterus, EOM intact, PERRLA, oral mucosa moist without lesions. Neck: trachea midline, no mass, symmetric, no thyromegaly or nodules, no adenopathy Respiratory: lungs CTA, respirations non labored. Cardiovascular: regular rate and rhythm, no murmur, no pedal edema or varicosities. Gastrointestinal: obese, soft, non distended, no tenderness, no masses, large, 10 cm defect in LLQ lateral to lower midline incision and just above Pfannenstiel incision, no skin changes, reduces spontaneously, nontender, no skin changes; diastasis recti yes, no hepatosplenomegaly; normal bs Lymphatic: no cervical adenopathy, no supraclavicular adenopathy Musculoskeletal: normal gait, digits and nails without infection, nodes, cyanosis, clubbing. Skin: no rashes, no lesions, no ulcers, no subcutaneous nodules, induration. Psychiatric/Neuro: oriented to time, place, person, judgement normal, affect appropriate for age, insight intact, no focal deficits. Tests: review of old records completed , Discussed surgical options, risks, and possible complications with patient. Assessment/Plan 1. Ventral incisional hernia (K43.2: Incisional hernia without obstruction or gangrene) large defect, will obtain abd/pelvic ct scan with contrast for further evaluation; will call patient with results; call sooner if problems/questions. signs/symptoms of incarceration/strangulation of hernia explained in detail, and patient understands that she should seek prompt medical evaluation if they were to occur. Ordered: Creatinine CT Abdomen/Pelvis w/ Contrast E&M of New Patient Moderate 45-59 Min 17730 Follow-up No qualifying data available Problem List/Past Medical History Ongoing Abdominal aortic atherosclerosis Allergic rhinitis BMI 32.0-32.9,adult Chronic obstructive pulmonary disease Depression Diabetes GERD (gastroesophageal reflux disease) HTN (hypertension) Hyperlipidemia Insomnia Obesity Renal cyst Ventral incisional hernia Vitamin D deficiency Historical No qualifying data Procedure/Surgical History Insertion of coronary artery stent (2013), Abdominal hysterectomy, Bowel obstruction, Cataract extraction, Ovarian cystectomy. Medications acarbose 100 mg oral tablet, 100 mg= 1 tab(s), Oral, BID Atacand 32 mg Tab, 16 mg= 0.5 tab(s), Oral, BID budesonide 0.5 mg/2 mL Inh Susp, 0.5 mg= 2 mL, NEB, BID carvedilol 25 mg Tab, 25 mg= 1 tab(s), Oral, BID Crestor 40 mg Tab, 40 mg= 1 tab(s), Oral, Daily Farxiga 10 mg oral tablet, 10 mg= 1 tab(s), Oral, MonWedFri Flonase 0.05 mg/inh [place], 2 puff(s), Nasal, BID Plavix 75 mg Tab, 75 mg= 1 tab(s), Oral, Daily Prozac 20 mg Cap, 20 mg= 1 cap (more content not included)... [facility] Comment on above: Result Comment: Elec tronically Signed By: BRAIN SCHULTE, Hawk Sparrow\Date and Time Signed: 10/10/23 15:17 EST 10-10-2023 Evaluation + Plan note Diagnostic Tests PendingCreatinine 10/10/23 [facility] [place] Evaluation note Diagnosis Incisional hernia, without obstruction or gangrene- Primary Incisional hernia without mention of obstruction or gangrene [facility] Pre[facility] examination- Primary Preoperative examination, unspecified Incisional hernia, without obstruction or gangrene Incisional hernia without mention of obstruction or gangrene Abnormal results of liver function studies Nonspecific abnormal results of liver function study Abnormal coagulation profile documented in this encounter [facility] course Narrative No data available for this section [facility] Discharge instructions No data available for this section [facility] note No data available for this section [facility] Summary Purpose Family History No Family History Records Found No data available for this section No Family History Records FoundNo Family History Records Found Advance Directives No Advanced Directives Records FoundNo Advanced Directives Records FoundNo Advanced Directives Records Found Reason for Referral Specialty Diagnoses / Procedures Referred By Contac t Referred To Contact Diagnoses Preoperative examination Incisional hernia, without obstruction or gangrene Procedures REFER TO PACC - PRE ANESTHESIA CONSULTATION CLINIC OFFICE/OUTPATIENT [facility] 60 MINUTES Edwige Ya, OLEG.EMAIL PRODUCTION CONSULTANT [address] [id number] Referral ID Status Reason Start Date Expiration Date Visits Requested Visits Authorized [id number] Authorized PCP Requested Referral 01/08/2024 01/04/2025 1 1 Specialty Diagnoses / Procedures Referred By Contac t Referred To Contact [facility] Diagnoses Preoperative examination Incisional hernia, without obstruction or gangrene Procedures ECG COMPLETE ECG ROUTINE ECG W/LEAST 12 LDS W/I&R Edwige Ya, FARM MANAGEMENT SUPERVISOR.EMAIL PRODUCTION CONSULTANT [address] [place], [place] [id number] [facility] [address] [place] [address] Referral ID Status Reason Start Date Expiration Date Visits Requested Visits Authorized [id number] Pending Review Auto-Generat ed Referral 01/08/2024 01/04/2025 1 1 Specialty Diagnoses / Procedures Referred By Contac t Referred To Contact Diagnoses Preoperative examination Incisional hernia, without obstruction or gangrene Procedures CONSULT TO [facility] OFFICE/OUTPATIENT [facility] 60 MINUTES Edwige Ya, OLEG.EMAIL PRODUCTION CONSULTANT [address] [place] [address] Referral ID Status Reason Start Date Expiration Date Visits Requested Visits Authorized [id number] Authorized PCP Requested Referral 01/08/2024 01/04/2025 1 1 Additional Source Comments INFORMATION SOURCE (unrecogn ized section and content) DATE CREATED AUTHOR 09/04/2021 [facility] DATE CREATED AUTHOR AUTHOR'S ORGANIZ ATION 01/08/2024 [facility] DATE CREATED AUTHOR AUTHOR'S ORGANIZ ATION 01/14/2024 Felipe Thomas [facility] Patient Care team informatio n (unrecognized section and content) Personnel Name: FLETCHER BARTON JR, DO Address: Address: [address] [place], [place] [address] [address] Source Comments (unrecognize d section and content) In the event this informatio n is protected by the Federal Confidentiality of Alcohol and Drug Abuse Patient Records regulations: The Federal rules restrict any use of the information to criminally investigate or prosecute any alcohol or drug abuse patient.[facility] the event this information is protected by the Federal Confidentiality of Alcohol and Drug Abuse Patient Records regulations: The Federal rules restrict any use of the information to criminally investigate or prosecute any alcohol or drug abuse patient.[facility] the event this information is protected by the Federal Confidentiality of Alcohol and Drug Abuse Patient Records regulations: The Federal rules restrict any use of the information to criminally investigate or prosecute any alcohol or drug abuse patient.[facility] Reason for Visit (unrecogniz ed section and content) Reason Comments Clinic Prep Reason Comments Consult Abdominal hernia Reason Comments 05.08.24 Cure Robotic Complex AWR 5 hours los 2 FOR RECORDS PERTAINING TO PATIENTS WHO ARE OR HAVE BEEN ENROLLED IN A CHEMICAL DEPENDENCY/SUBSTANCEABUSE PROGRAM, SOME INFORMATION MAY BE OMITTED. This clinical summary was aggregated from multiple sources. Caution should be exercised in using it in the provision of clinical care. This summary normalizes information from multiple sources, and as a consequence, information in this document may materially change the coding, format and clinical context of patient data. In addition, data may be omitted in some cases. CLINICAL DECISIONS SHOULD BE BASED ON THE PRIMARY CLINICAL RECORDS. [facility] [employer] [facility]. provides no warranty or guarantee of the accuracy or completeness of information in this document.
[2024-03-16 18:15] LABS: Hematocrit 39.9 % (36.0-48.0); Mean Corpuscular HGB Conc 32.6 g/dL (29.9-35.2); Mean Corpuscular Hemoglobin 30.2 pg (26.7-34.0); Mean Corpuscular Volume 92.8 fL (81.0-99.0); PCO2 VBG 32.7 mmHg (40.0-52.0); Platelet Count 139 10^3/uL (150-450); Red Cell Distribution Width 12.6 % (11.0-15.0); White Blood Count 10.9 10^3/uL (4.0-11.0); pH VBG 7.485 (7.330-7.430)
--- NOTE | 2024-03-16 18:18 | CT_ITS ---
The [address] [address] Patient Name: ASHU SANDRA MRN: [id number] date: 1945 Sex: F Assigned Patient Location: ER Current Patient Location: ER Accession/Order Number: [id number] Exam Date: 03/16/2024 18:44 Report Date: 03/16/2024 20:01 At the request of: JULI GARCIA Procedure: CT abdomen pelvis wo con EXAMINATION:CT abdomen pelvis wo con INDICATION:Sepsis, rule out obstruction versus stone COMPARISON:11/16/2023 TECHNIQUE:Multiple thin section transaxial slices were acquired through the abdomen and pelvis without intravenous contrast. Coronal and sagittal reconstructed images were reviewed. Oral contrastWas not administered. FINDINGS: LOWER CHEST: There is a similar pulmonary nodule in the right middle lobe measuring 3.7 mm. LIVER: The liver is unremarkable. GALLBLADDER AND BILIARY SYSTEM: No obvious ductal dilation. No calcified stones. SPLEEN: The spleen is unremarkable. PANCREAS: The pancreas is unremarkable. ADRENAL GLANDS: The adrenal glands are unremarkable. KIDNEYS AND URETERS: There is no hydronephrosis of the kidneys.No obstructing urologic calcifications are present. Increased perinephric fat stranding is associated with the kidneys. This may be due to an infectious process. VASCULATURE: There is atherosclerotic plaque in the abdominal aorta without aneurysm. PERITONEUM/RETROPERITONEUM: Peritoneum/retroperitoneum is unremarkable. LYMPH NODES: No suspicious lymphadenopathy. GASTROINTESTINAL TRACT: There are ventral hernia defects in the anterior abdominal wall containing loops of small and large bowel. Colonic bowel loops in the lower ventral hernia are mildly dilated measuring up to 2.6 cm. These particular loops of small bowel are slightly out of proportion to the adjacent surrounding small bowel loops. 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 No acute inflammation is associated with the bowel.The appendix is not visualized and may be absent or diminutive. BLADDER: The urinary bladder is unremarkable. REPRODUCTIVE SYSTEM: The uterus is absent. BODY WALL: Large ventral hernia defects are present in the abdominal wall containing loops of bowel. Similar findings were seen previously. BONES: Mild degenerative disc disease is present in the lumbar spine. CT/CT abdomen pelvis wo con IMPRESSION: 1. Ventral hernia defects along the anterior abdominal wall similar to the previous exam. On today's examination, small bowel loops in the lower hernia defect are mildly dilated out of proportion to the remaining surrounding small bowel loops. The possibility of a developing small bowel obstruction cannot entirely be excluded. 2. No obstructive uropathy. Slight increased perinephric fat stranding of the kidneys which could be secondary to an underlying infectious process. Correlation with urinalysis is recommended. Electronically authenticated by: FLORENCIO WEEMS Date: 03/16/2024 20:01
[2024-03-16] MEDS: 0.9 % SODIUM CHLORIDE 1,000 ML 999 ML IV (18:23)
[2024-03-16 18:29] LABS: INR 1.12; Prothrombin Time 11.7 sec (9.0-11.6)
--- NOTE | 2024-03-16 18:29 | PC.NURSE ---
pt reports having a UTI that pt has been treating herself with OTC meds. Has not seen PCP for this. IV Fluids started
[2024-03-16 18:32] LABS: Alanine Aminotransferase 24 U/L (14-59); Albumin Globulin Ratio 0.8; Albumin Level 2.8 g/dL (3.4-5.0); Alkaline Phosphatase 54 U/L (46-116); Anion Gap 13.1; Aspartate Amino Transferase 15 U/L (15-37); BUN Creatinine Ratio 19.9; Bilirubin Total 1.7 mg/dL (0.2-1.0); Carbon Dioxide 25.9 mmol/L (21.0-32.0); Chloride 101 mmol/L (98-107); Estimated GFR (African America 44 (>=60); Estimated GFR (Non-African Ame 36 (>=60); Globulin 3.7 g/dL; Glucose 142 mg/dL (74-106); Sodium 136 mmol/L (136-145); Total Protein 6.5 g/dL (6.4-8.2)
[2024-03-16] MEDS: ACETAMINOPHEN 500 MG TABLET 1000 MG PO (18:33)
[2024-03-16 18:34] LABS: Lactate/Lactic Acid 1.4 mmol/L (0.4-2.0)
[2024-03-16] MEDS: CEFTRIAXONE 1,000 MG in 0.9 % SODIUM CHLORIDE 50 ML 100 MG IV (18:35)
[2024-03-16 18:37] LABS: Troponin I High Sensitivity 6.8 pg/mL (4.0-51.3)
[2024-03-16 18:38] LABS: Lymphocytes Absolute Manual 0.32 10^3/uL (1.20-3.80); Monocytes Absolute Manual 0.54 10^3/uL (0.30-0.80); Segmented Neut Absolute Manual 8.93 10^3/uL (1.4-6.5)
[2024-03-16 18:43] LABS: D Dimer 2.04 mg/L FEU (<=0.59)
[2024-03-16 18:43] LABS: Bilirubin Urine NEGATIVE (NEGATIVE); Blood Urine LARGE (NEGATIVE); Clarity Urine SL CLOUDY (CLEAR); Color Urine YELLOW (YELLOW); Glucose Urine UA NEGATIVE (NEGATIVE); Ketones Urine NEGATIVE (NEGATIVE); Leukocyte Esterase Urine SMALL (NEGATIVE); Nitrite Urine POSITIVE (NEGATIVE); Protein Urine 100 mg/dL (NEG/TRACE); Specific Gravity Urine 1.025 (1.005-1.025)
[2024-03-16 18:44] LABS: Urine Microscopic Indicated YES
[2024-03-16 18:45] LABS: PROCALCITONIN 5.92 ng/mL (0.00-0.50)
[2024-03-16 18:50] LABS: Bacteria Urine MODERATE #/HPF (NONE SEEN); Cast Seen? NONE SEEN #/LPF (NONE SEEN); Crystals Seen? None Seen #/HPF (None Seen); Mucus Urine NONE SEEN (NONE SEEN); RBC Urine 20-50 #/HPF (0-2); Squamous Epithelial Cell Urine FEW #/LPF (NONE/RARE); Urine Culture Indicated ALREADY ORDERED
--- NOTE | 2024-03-16 20:07 | ED.GENADUL1 ---
HPI HPI - General Adult General Chief complaint: Nausea/Vomiting/Diarrhea Stated complaint: NAUSEA/VOMITING Time Seen by Provider: 03/16/24 18:00 Source: patient and family Mode of arrival: ambulance Limitations: no limitations History of Present Illness HPI narrative: The patient was initially seen by Dr. Brown and signed out to me after discussing the case with him thoroughly. Please see his full history and physical exam. Related Data Home Medications ?Medication ?Instructions ?Recorded ?Confirmed candesartan 32 mg tablet 16 mg PO BID 03/16/24 03/16/24 carvedilol 25 mg tablet 25 mg PO BID 03/16/24 03/16/24 clopidogrel 75 mg tablet 75 mg PO DAILY 03/16/24 03/16/24 fluoxetine 40 mg capsule 40 mg PO DAILY 03/16/24 03/16/24 montelukast 10 mg tablet 10 mg PO DAILY 03/16/24 03/16/24 rosuvastatin 40 mg tablet 40 mg PO DAILY 03/16/24 03/16/24 trazodone 50 mg tablet 50 mg PO QPM 03/16/24 03/16/24 Allergies Allergy/AdvReac Type Severity Reaction Status Date / Time Penicillins Allergy Severe Cramping Verified 03/16/24 18:01 of the Muscles Sulfa (Sulfonamide Allergy Severe Swelling Verified 03/16/24 18:01 Antibiotics) of Lip/Tongue/Throat Opioid HPI Opioid Management Most Recent Opioid Data: No Data to Display Exam Constitutional Vital Signs, click to edit/add: Last Vital Signs Temp 98.7 F 03/16/24 20:06 Pulse 83 03/16/24 19:00 Resp 21 H 03/16/24 19:00 BP 126/55 03/16/24 18:55 Pulse Ox 93 L 03/16/24 19:00 O2 Del Method Room Air 03/16/24 18:01 Course Vital Signs Vital signs: Vital Signs Temperature 101.1 F H 03/16/24 18:01 Pulse Rate 85 03/16/24 18:01 Respiratory Rate 20 03/16/24 18:01 Blood Pressure 159/65 H 03/16/24 18:01 Pulse Oximetry 92 L 03/16/24 18:01 Oxygen Delivery Method Room Air 03/16/24 18:01 Temperature 98.7 F 03/16/24 20:06 Pulse Rate 83 06/01/24 19:00 Respiratory Rate 21 H 03/16/24 19:00 Blood Pressure 126/55 03/16/24 18:55 Pulse Oximetry 93 L 03/16/24 19:00 Oxygen Delivery Method Room Air 03/16/24 18:01 Medical Decision Making MDM Narrative Medical decision making narrative: UTI is identified. There is some perinephric stranding and the patient may have early pyelonephritis. She had a fever which has come down appropriately. WBC is normal. Cultures were obtained and she was given IV Rocephin and she is being admitted. CT of the abdomen per radiologist also suggested the possibility of a developing small bowel obstruction but this does not fit the clinical picture and I have no clinical suspicion of a small bowel obstruction. Treatment diagnosis and disposition were discussed with the patient and her . Differential Diagnosis Differential Diagnosis: UTI, no need for this Lab Data Labs: Lab Results 03/16/24 03/16/24 Range/Units 18:05 18:25 WBC 10.9 (4.0-11.0) 10^3/uL RBC 4.30 (4.20-5.40) 10^6/uL Hgb 13.0 (12.0-16.0) g/dL Hct 39.9 (36.0-48.0) % MCV 92.8 (81.0-99.0) fL MCH 30.2 (26.7-34.0) pg MCHC 32.6 (29.9-35.2) g/dL RDW 12.6 (11.0-15.0) % Plt Count 139 L (150-450) 10^3/uL MPV 11.0 (9.5-13.5) fL Seg Neuts % (Manual) 82.0 Band Neutrophils % 9.0 H (0-5) % Lymphocytes % (Manual) 3.0 L (20.5-60.0) % Monocytes % (Manual) 5.0 (1.7-12.0) % Eosinophils % (Manual) 0.0 L (0.9-7.0) % Basophils % (Manual) 1.0 (0.2-2.0) % Neutrophils # (Manual) 8.93 H (1.4-6.5) 10^3/uL Band Neutrophils # 1.0 H (0.0-0.3) 10^3/uL Lymphocytes # (Manual) 0.32 L (1.20-3.80) 10^3/uL Monocytes # (Manual) 0.54 (0.30-0.80) 10^3/uL Eosinophils # (Manual) 0.00 (0.00-0.70) 10^3/uL Basophils # (Manual) 0.10 (0.00-0.10) 10^3/uL PT 11.7 H (9.0-11.6) sec INR 1.12 D-Dimer 2.04 H* (<=0.59) mg/L FEU VBG pH 7.485 H (7.330-7.430) VBG pCO2 32.7 L (40.0-52.0) mmHg Sodium 136 (136-145) mmol/L Potassium 4.0 (3.5-5.1) mmol/L Chloride 101 (98-107) mmol/L Carbon Dioxide 25.9 (21.0-32.0) mmol/L Anion Gap 13.1 BUN 28.0 H (7.0-18.0) mg/dL Creatinine 1.41 H (0.55-1.02) mg/dL Est GFR ( Amer) 44 L (>=60) Est GFR (Non-Af Amer) 36 L (>=60) BUN/Creatinine Ratio 19.9 Glucose 142 H (74-106) mg/dL Lactate 1.4 (0.4-2.0) mmol/L Calcium 9.0 (8.5-10.1) mg/dL Total Bilirubin 1.7 H (0.2-1.0) mg/dL AST 15 (15-37) U/L ALT 24 (14-59) U/L Alkaline Phosphatase 54 (46-116) U/L Troponin I High Sens 6.8 (4.0-51.3) pg/mL Total Protein 6.5 (6.4-8.2) g/dL Albumin 2.8 L (3.4-5.0) g/dL Globulin 3.7 g/dL Albumin/Globulin Ratio 0.8 Procalcitonin 5.92 H (0.00-0.50) ng/mL Urine Color Yellow (YELLOW) Urine Clarity Sl cloudy (CLEAR) Urine pH 6.0 (5.0-9.0) Ur Specific [place] 1.025 (1.005-1.025) Urine Protein 100 A (NEG/TRACE) mg/dL Urine Glucose (UA) Negative (NEGATIVE) mg/dL Urine Ketones Negative (NEGATIVE) mg/dL Urine Occult Blood Large A (NEGATIVE) Urine Nitrite Positive A (NEGATIVE) Urine Bilirubin Negative (NEGATIVE) Urine Urobilinogen 1.0 (0.2-1.0) EU/dL Ur Leukocyte Esterase Small A (NEGATIVE) Urine RBC 20-50 A (0-2) #/HPF Urine WBC 5-10 A (NONE SEEN) #/HPF Ur Squamous Epith Cells Few A (NONE/RARE) #/LPF Urine Crystals None seen (None Seen) #/HPF Urine Bacteria Moderate A (NONE SEEN) #/HPF Urine Casts None seen (NONE SEEN) #/LPF Urine Mucus None seen (NONE SEEN) Ur Culture Indicated? Already ordered Imaging Data CT scan - abdomen: Radiologist's impression: ITS Impressions Chest X-Ray 03/16/24 18:01 IMPRESSION: No acute cardiopulmonary process. Electronically authenticated by: GEORGI RODRIGUES Date: 03/16/2024 19:46 Abdomen/Pelvis CT 03/16/24 18:18 IMPRESSION: 1. Ventral hernia defects along the anterior abdominal wall similar to the previous exam. On today's examination, small bowel loops in the lower hernia defect are mildly dilated out of proportion to the remaining surrounding small bowel loops. The possibility of a developing small bowel obstruction cannot entirely be excluded. 2. No obstructive uropathy. Slight increased perinephric fat stranding of the kidneys which could be secondary to an underlying infectious process. Correlation with urinalysis is recommended. Electronically authenticated by: FLORENCIO WEEMS Date: 03/16/2024 20:01 ECG Data Attestation: I personally reviewed and interpreted this ECG as follows: (EKG on my interpretation shows normal sinus rhythm without acute change and a rate of 83.) Discharge Plan Discharge Chief Complaint: Nausea/Vomiting/Diarrhea Clinical Impression: Urinary tract infection Patient Disposition: Admitted As Inpatient Time of Disposition Decision: 20:06 Condition: Good
--- OUTSIDE RECORDS SUMMARY | 2024-03-16 21:00 | XMS_ITS | CCD ---
Author Organization [facility] Care Team Providers Care Photograph Mounter Name Role Phone SYMONE, DOCTOR Admitting Unavailable SYMONE, DR REIS Attending Unavailable DR WILLIAM DURHAM Primary Care Unavailable FLETCHER BARTON JR Primary Care Physician Unavailable Primary Care Provider Unavailazeb grier Unavailable Primary Care Provider ZACHERY Becerra Attending HAWK Hardy Referring Unavailable FLETCHER BARTON Referring Unavailable Hawk ALTAMIRANO Attending Unavailable Allergies Allergy Classification Reported Allergen(s) Allergy Type Date of Onset Reaction(s) Facility (2 sources) cloNIDine; Translations: [Catapres] Drug Allergy 4 [facility] Repository (2 sources) Penicillins; Translations: [PENICILLINS] Drug allergy (disorder) 4 [facility] Repository (1 source) Sulfonamides (Antibiotic) Drug allergy (disorder) 4 [facility] Repository (1 source) cloNIDine; Translations: [clonidine] Drug Allergy [facility] [place] (2 sources) Penicillin; Translations: [penicillin] Drug Allergy Finding of gross movement of body and limbs (finding) [facility] [place] (2 sources) Sulfonamides (Antibiotic); Translations: [sulfa drugs] Propensity to adverse reactions to drug Edema of the tongue (disorder) [facility] [place] (2 sources) Penicillins Drug Allergy 4 Anaphylaxis [facility] (3 sources) Sulfonamides (Antibiotic); Translations: [SULFA (SULFONAMIDE ANTIBIOTICS)] Drug Allergy 4 Swelling [facility] Medications Current Medications Medication Drug Class(es) Dates [...] (1 source) Sodium-Glucose Cotransporter 2 Inhibitor Start: 3 Farxiga 10 mg oral tablet 10 mg [...] source) Corticosteroid Start: 3 Flonase 0.05 mg/inh [place] 2 puff(s), Nasal, BID, Refill(s) 0 Start [...] tablet (3 sources) Serotonin Reuptake Inhibitor Start: 3 take 1 tablet by [...] Take 5,000 Units by mouth once daily. Problems Problem Classification Problem Date Documented Date [...] codes; unclassified (1 source) Insomnia 09-29-2023 Episodic Results Test Name Value Interpretation Reference Range Facility Consultation Noteon 01-14-20 Consultation Note [id number] .00TIFF Shalonda Wang [facility] CNOVon 01-04-2024 CNOV Office Visit (PEDRO ) MARYAM SANDRA ([id number]) 1945 F Date Time Provider Department 01/04/24 1:00 PM ZACHERY KISER During your visit today, we recorded the following information about you: Temperature Pulse Blood pressure Weight 97.4 degrees 68/minute 197/82 66.2 kg Height 1.499 m Christy Yoder 01/04/2024 1:57 PM Signed [facility] Abdominal [facility] - HISTORY AND PHYSICAL Chief Complaint: [...] - Abdom (more content not included)... Normal [facility] 12-22-2023 [facility] (GENVALN) MARYAM SANDRA ([id number]) 1945 F Date Time Provider Department 12/22/23 EDER MELARA During your visit today, we recorded the following information about you: Eder Melara OCCA 12/22/2023 1:02 PM Signed Called patient to request recent imaging and PSHx. Patient has CT at [facility] (faxed request for imaging to be pushed), surgeries were performed at [facility]. Faxed request for reports. Jean Melara EMT-P, OCCA Buettner, William, OCCA 12/22/2023 3:37 PM Signed Received 1 operative note from [facility], sent for scanning. B. Francesco, EMT-P, OCCA Allergies As of Date: 12/22/2023 (Not on File) Date Reviewed: Never Reviewed Reason for Visit: Clinic Prep [Other] Problem List As Of Date: 12/22/2023 (None) Encounter Status:Closed by EDER MELARA on 12/22/23 Normal [facility] RAD - CT Reporton 11-24-2023 RAD - CT Report [id number] .00TIFF Normal [facility] Lab Reportson 11-21-2023 Lab Reports [id number] .00TIFF Normal [facility] CREATININEon 11-16-2023 Creatinine [Mass/Vol] 1.08 mg/dL High 0.55 - 1.02 mg/dL [facility] GFR/1.73 sq M.predicted CKD-EPI (S/P/Bld) [Vol rate/Area] 60 60 - PINF [facility] Interpretation and review of laboratory results Abnormal [facility] EGFR-NON AF LITHUANIAN 49 Low 60 - PINF [facility] Healthcar e Facesheeton 10-11-2023 Facesheet [id number] .00TIFF Normal [facility] Ambulatory Visit Summaryon 1 12-11-2022 Ambulatory Visit Summary MARYAM SANDRA :1945 Visit Date:10/10/2023 Ambulatory Visit Instructions Your [...] mg Cap) fluticasone nasal (Flonase 0.05 mg/inh [place]) montelukast (Singulair 10 mg Tab) revefenacin (Yupelri [...] Unchanged fluticasone nasal (Flonase 0.05 mg/ inh [place]) 2 Puffs Nasal Inhalation 2 times a [...] choosing us for your care. [facility] Physician Referralon 023 Physician Referral [id number] .00TIFF [facility] Vital Signs Date Time Vital Sign Value Performing Clinician Facility 01-04-2024 13:02-0400 Body height 149.9 cm Zachery Kiser MD Work Phone: [facility] 01-04-2024 13:02-0400 Body temperature 97.39 [degF] Zachery Kiser MD Work Phone: [facility] 01-04-2024 13:02-0400 Body weight 66.22 kg Zachery Kiser MD Work Phone: [facility] 01-04-2024 13:02-0400 Diastolic blood pressure 82 mm[Hg] Zachery Kiser MD Work Phone: [facility] 01-04-2024 13:02-0400 Heart rate 68 /min Zachery Kiser MD Work Phone: [facility] 01-04-2024 13:02-0400 Systolic blood pressure 197 mm[Hg] Zachery Kiser MD Work Phone: [facility] 10-10-2023 14:38-0500 Blood Pressure Location Hawk ALTAMIRANO [facility] [place] 10-10-2023 14:38-0500 Diastolic blood pressure 86 mm[Hg] Hawk NILL [facility] [place] 10-10-2023 14:38-0500 Heart rate 76 /min Hawk NILL [facility] [place] 10-10-2023 14:38-0500 Respiratory rate 16 /min Hawk NILL [facility] [place] 10-10-2023 14:38-0500 Systolic blood pressure 154 mm[Hg] Hawk NILL [facility] [place] Encounters Encounter Date Encounter Type Care Provider Facility Start: 01-05-2024 ambulatory Zachery Kiser MD Work Phone: [facility] Comment on above: 05.08.24 Cure (Robot ic Complex AWR 5 hours los 2) Start: 01-05-2024 Preprocedural examin ation done Zachery Kiser MD Work Phone: [facility] Start: 01-04-2024 End: 01-05-2024 ambulatory ZACHERY KISER Facility:[facility] Start: 01-04-2024 End: 01-04-2024 Patient encounter procedure Zacheyr Kiser MD Work Phone: General Surgery Comment [...] Start: 10-10-2023 End: 10-11-2023 ambulatory FLETCHER BARTON Facility:[facility] Start: 10-10-2023 End: 10-10-2023 Patient encounter procedure Hawk ALTAMIRANO [facility] [place] Start: 09-28-2023 ambulatory FLETCHER MICK Facility : [facility] Start: 08-17-2021 End: 08-17-[address] DOCTOR ASHBY Facility:[facility] Procedures Date Procedure Procedure Detail Performing Clinician Start: 11-16-2023 [facility] CREATININE Generic External Data Provider Start: 10-16-2013 Placement of stent i n coronary artery Hawk LEWISL Excision of cyst of ovary Mi yakov LEWISL Extraction of cataract Oscar LEWISL Intestinal obstructi on (disorder) Hawk NILL Plan of Treatment Date Care Activity Detail Author Start: 02-05-2024 End: 06-16-2024 aPTT in Platelet poor plasma by Coagulation assay ACTIVATED PTT Lab Routine Preoperative examination Incisional hernia, without obstruction or gangrene Abnormal coagulation profile Expected: 02/05/2024, Expires: 06/16/2024 [facility] Work Phone: Comment on above: Expected: 02/05/2024 , Expires: 06/16/2024 Start: 02-05-2024 End: 06-16-2024 CBC W Auto Differential panel - Blood CBC + DIFF Lab Routine Preoperative examination Incisional hernia, without obstruction or gangrene Expected: 02/05/2024, Expires: 06/16/2024 [facility] Work Phone: Comment on above: Expected: 02/05/2024 , Expires: 06/16/2024 Start: 02-05-2024 End: 06-16-2024 Comprehensive metabolic 2000 panel - Serum or Plasma COMP METABOLIC PANEL Lab Routine Preoperative examination Incisional hernia, without obstruction or gangrene Expected: 02/05/2024, Expires: 06/16/2024 [facility] Work Phone: Comment on above: Expected: 02/05/2024 , Expires: 06/16/2024 Start: 02-05-2024 End: 06-16-2024 PT panel - Platelet poor plasma by Coagulation assay PROTHROMBIN TIME/PT Lab Routine Preoperative examination Incisional hernia, without obstruction or gangrene Abnormal results of liver function studies Expected: 02/05/2024, Expires: 06/16/2024 [facility] Work Phone: Comment on above: Expected: 02/05/2024 , Expires: 06/16/2024 Start: 02-05-2024 End: 06-16-2024 TYPE AND SCREEN,30 DAY TYPE AND SCREEN,30 DAY Blood Bank Routine Preoperative examination Incisional hernia, without obstruction or gangrene Expected: 02/05/2024, Expires: 06/16/2024 [facility] Work Phone: Comment on above: Expected: 02/05/2024 , Expires: 06/16/2024 Start: 10-16-2023 Advance Directive Discussion Advance Directive Discussion [facility] Start: 10-16-2023 Depression Assessment Depression Ass essment [facility] Start: 06-16-2023 Covid-19 Vaccine () Covid-19 Vaccine () [facility] Start: 06-16-2023 Influenza vaccination Influenza Vacc ine (#1) [facility] Start: 01-01-2012 Pneumococcal Vaccine : 65+ (1 of 1 - PCV) Pneumococcal Vaccine: 65+ (1 of 1 - PCV) [facility] Start: 01-01-2012 Screening for osteoporosis Bone Density Screening [facility] Start: 2006 RSV Vaccine (1 - 1-d ose 60+ series) RSV Vaccine (1 - 1-dose 60+ series) [facility] Start: 1996 Shingrix Vaccine (1 of 2) Shingrix Vaccine (1 of 2) [facility] Start: 01-01-1992 Diabetes Screening Diabetes Screenin g [facility] Start: 1965 Urine microalbumin profile DTaP,Tdap,Td Vaccine (1 - Tdap) [facility] Start: 1964 Hepatitis C screening Hepatitis C [facility] Start: 07-03-1947 Covid-19 Vaccine (#1) Covid-19 Vacci ne (#1) [facility] End: 01-04-2025 ECG COMPLETE ECG COMPLETE ECG Routine Preoperative examination Incisional hernia, without obstruction or gangrene 1 Occurrences starting 01/08/2024 until 01/04/2025 [facility] Work Phone: Comment on above: 1 Occurrences starti ng 01/08/2024 until 01/04/2025 REFER FOR ADMIT INTERVIEW REFER FOR ADMIT INTERVIEW Procedures Routine Preoperative examination Incisional hernia, without obstruction or gangrene Ordered: 01/08/2024 [facility] Work Phone: Comment on above: Ordered: 01/08/2024 [facility] Immunizations Immunization Date Immunization Notes Care Provider Fa cility 08-09-2021 SARS-CoV-2 (COVID-19 ) mRNA-1273 vaccine Hawk NILL [facility] 12-23-2020 SARS-CoV-2 (COVID-19 ) mRNA-1273 vaccine Hawk NILL [facility] [place] 11-25-2020 SARS-CoV-2 (COVID-19 ) mRNA-1273 vaccine Hawk NILL [facility] [place] NEGATED: Highlighted row has not occurred!10-10-2023 influenza virus vaccine, unspecified formulation Hawk NILL [facility] [place] Payers Date Payer Category Payer Unknown MMO MMO MEDICARE SUPPLEMENT [id number] 2021-Present [phone] [address] [place] [address] Indemnity [id number] 2017 Medicare [id number] 2011 Medicare MEDICARE MEDICAR E A AND B [id number] 2011-Present [phone] [address] [address] [place] [address] Medicare [id number] 1959 Medicare [id number] 1959 Unknown [id number] 1945 Unknown [id number] 1945 Unknown [id number] 1945 Unknown [id number] Social History Date Type Detail Facility Start: 10-10-2023 End: 01-04-2024 Tobacco smoking status Ex-smoker (finding) [facility] Tobacco smoking status Never [facility] [place] Start: 01-04-2024 Sex Assigned At Female F [facility] Tobacco smoking status [facility] Tobacco smoking consumption unknown [facility] Start: 1945 Sex Assigned At Not on file N [facility] End: 10-16-1983 History of tobacco use Current smoker [facility] End: 10-16-1983 History of tobacco use Cigarette Smoker [facility] Start: 01-04-2024 Alcohol intake Lifetime non-d hyun (finding) [facility] Start: 01-04-2024 History of Social function [facility] Functional Status Date Assessment Result Facility 10-10-2023 Functional Status N/A General Stone rgery [facility] Clinical Notes 10-10-2023 to 01-04-2024 Zachery Kiser MD - 01/04/2024 3:50 PM Christy Crump - 01/04/2024 12:51 PM Dinah Boudreaux MA - 01/04/2024 1:09 PM EDT Note Date & Type Note Facility 01-04-2024 Note HNO ID: [id number] Author: ZACHERY KISER MD Service: ? Author [...] Patient consented for study? No: Patient declined [facility] 01-04-2024 History of Present illness Narrative Consultation [...] Patient consented for study? No: Patient declined [facility] - HISTORY AND PHYSICAL Chief Complaint: [...] MS3 01/04/24 1:55PM documented in this encounter [facility] 01-04-2024 Note HNO ID: [id number] Author: ?, ?, ? Service: ? Author Type: ? Type: Progress Notes Filed: 01/04/2024 13:57 Note Text: [facility] - HISTORY AND PHYSICAL Chief Complaint: [...] be scheduled. Christy Yoder MS3 01/04/24 1:55PM [facility] 01-04-2024 Nurse Note What is the reason for your visit today? Consult Who is your referring physician? Nill Are you having poor oral intake? NO Have you had unintentional weight loss of 15 lbs/7 Kg in the last 3-6 months? NO Bowels: regular Wound: clean & dry Temperature: No Drains: No documented in this encounter [facility] 12-22-2023 Miscellaneous Notes Received 1 operative note from [facility], sent for scanning. Jean Melara EMT-P, OCCA Called patient to request recent imaging and PSHx. Patient has CT at [facility] (faxed request for imaging to be pushed), surgeries were performed at [facility]. Faxed request for reports. Jean Melara EMT-P, OCCA documented in this encounter [facility] 10-10-2023 Note Chief Complaint consultation for [...] E&M of New Patient Moderate 45-59 Min [id number] Follow-up No qualifying data available Problem List/Past [...] 1 tab(s), Oral, MonWedFri Flonase 0.05 mg/inh [place], 2 puff(s), Nasal, BID Plavix 75 mg Tab, 75 mg= 1 tab(s), Oral, Daily Prozac 20 mg Cap, 20 mg= 1 cap (more content not included)... [facility] Comment on above: Result Comment: Elec tronically Signed By: BRAIN SCHULTE, Hawk Sparrow\Date and Time Signed: 10/10/23 15:17 EST 10-10-2023 Evaluation + Plan note Diagnostic Tests PendingCreatinine 10/10/23 [facility] [place] Evaluation note Diagnosis Incisional hernia, without obstruction or gangrene- Primary Incisional hernia without mention of obstruction or gangrene [facility] Preoperative examination- Primary Preoperative examination, unspecified Incisional hernia, without obstruction or gangrene Incisional hernia without mention of obstruction or gangrene Abnormal results of liver function studies Nonspecific abnormal results of liver function study Abnormal coagulation profile documented in this encounter [facility] course Narrative No data available for this section [facility] Discharge instructions No data available for this section [facility] [place] Progress note No data available for this section [facility] [place] Summary Purpose Family History No Family History [...] PACC - PRE ANESTHESIA CONSULTATION CLINIC OFFICE/OUTPATIENT [facility] 60 MINUTES Edwige aY, NETWORK SUPPORT SPECIALIST.APPLICATIONS DEVELOPMENT CONSULTANT [address] [id number] Referral ID Status Reason Start Date Expiration Date Visits Requested Visits Authorized [id number] Authorized PCP Requested Referral 01/08/2024 01/04/2025 1 1 Specialty Diagnoses / Procedures Referred By Contac t [facility] Diagnoses Preoperative examination Incisional hernia, without obstruction or gangrene Procedures ECG COMPLETE ECG ROUTINE ECG W/LEAST 12 LDS W/I&R Edwige Ya, NETWORK SUPPORT SPECIALIST.APPLICATIONS DEVELOPMENT CONSULTANT [address] [address] [facility] [address] [place] [address] Referral ID Status Reason Start Date Expiration Date Visits Requested Visits Authorized [id number] Pending Review Auto-Generat ed Referral 01/08/2024 01/04/2025 1 1 Specialty Diagnoses / Procedures Referred By Contac t Referred To Contact Diagnoses Preoperative examination Incisional hernia, without obstruction or gangrene Procedures CONSULT TO [facility] OFFICE/OUTPATIENT [facility] 60 MINUTES Edwige Ya, NETWORK SUPPORT SPECIALIST.APPLICATIONS DEVELOPMENT CONSULTANT [address] [place] [id number] Referral ID Status Reason Start Date Expiration Date Visits Requested Visits Authorized [id number] Authorized PCP Requested Referral 01/08/2024 01/04/2025 1 1 Additional Source Comments INFORMATION SOURCE (unrecogn ized section and content) DATE CREATED AUTHOR 09/04/2021 [facility] DATE CREATED AUTHOR AUTHOR'S ORGANIZ ATION 01/08/2024 [facility] DATE CREATED AUTHOR AUTHOR'S ORGANIZ ATION 01/14/2024 [facility] Patient Care team informatio n (unrecognized section and content) Personnel Name: FLETCHER BARTON JR, DO Address: Address: [address] [place] [id number] Source Comments (unrecognize d section and content) In the event this informatio n is protected by the Federal Confidentiality of Alcohol and Drug Abuse Patient Records regulations: The Federal rules restrict any use of the information to criminally investigate or prosecute any alcohol or drug abuse patient.[facility] the event this information is protected by the Federal Confidentiality of Alcohol and Drug Abuse Patient Records regulations: The Federal rules restrict any use of the information to criminally investigate or prosecute any alcohol or drug abuse patient.[facility] the event this information is protected by the Federal Confidentiality of Alcohol and Drug Abuse Patient Records regulations: The Federal rules restrict any use of the information to criminally investigate or prosecute any alcohol or drug abuse patient.[facility] Reason for Visit (unrecogniz ed section [...] BE BASED ON THE PRIMARY CLINICAL RECORDS. [employer] [facility]. provides no warranty or guarantee of the accuracy or completeness of information in this document.
[2024-03-16] MEDS: 0.9 % SODIUM CHLORIDE 1,000 ML 100 ML IV (21:36)
[2024-03-16] MEDS: CARVEDILOL 25 MG TABLET PO (21:36)
[2024-03-17] VITALS (40 sets, daily range): BP systolic 113–178; BP diastolic 55–75; PULSE 67–91; TEMP 36.8–38.8; O2SAT 86–97
[2024-03-17] MEDS: ACETAMINOPHEN 325 MG TABLET 650 MG PO ×3 (02:45→17:31)
--- NOTE | 2024-03-17 06:28 | CT_ITS ---
The [address] [address] Patient Name: SAHU SANDRA MRN: [id number] date: 1945 Sex: F Assigned Patient Location: ICU Current Patient Location: ICU Accession/Order Number: [id number] Exam Date: 03/17/2024 06:55 Report Date: 03/17/2024 07:48 At the request of: SHAIKH EMMA Procedure: CT angio chest CT CHEST ANGIOGRAPHY FOR PULMONARY EMBOLUS: 03/17/2024 6:55 AM EDT Clinical Data: r/o PE Comparison: No previous Contrast enhanced helically acquired data per pulmonary CTA protocol. Volumetric recons in MIP mode were generated and reviewed. FINDINGS: AXILLAE: No acute finding. SUPRACLAVICULAR: No acute finding. MEDIASTINUM: No acute finding. JHONNY: No acute finding. HEART: Normal in size. No pericardial effusion. VASCULAR: SYSTEMIC: No acute finding. PULMONARY: Main pulmonary artery is clear.] Left pulmonary arteries are clear. Proximal and mid branches are free of meniscal filling defects. LUNGS: No pulmonary infiltrate. Slight emphysematous changes. 4.7 mm area of vague semisolid groundglass opacification right lower lobe. PLEURA: No pleural effusion. No pneumothorax CHEST WALL: No focal soft tissue prominence. BONES: No acute findings UPPER ABD: Superior aspects of a midline hernia containing bowel OTHER: None CT/CT angio chest IMPRESSION: 1. No evidence of acute pulmonary embolic disease. 2. No lobar infiltrate. No pleural effusion. Slight emphysematous disease. 3. Vague semisolid nonspecific area of increased density right lower lobe. Follow-up exam in 6 months time Electronically authenticated by: KANDIS LEONG Date: 03/17/2024 07:48
[2024-03-17] MEDS: 0.9 % SODIUM CHLORIDE 1,000 ML 100 ML IV ×2 (06:40→17:31)
[2024-03-17 07:49] LABS: A. calcoaceticus-baumannii Cpx NOT DETECTED (NOT DETECTE); Bacteroides fragilis NOT DETECTED (NOT DETECTE); Candida albicans NOT DETECTED (NOT DETECTE); Candida auris NOT DETECTED (NOT DETECTE); Candida glabrata NOT DETECTED (NOT DETECTE); Candida krusei NOT DETECTED (NOT DETECTE); Candida parapsilosis NOT DETECTED (NOT DETECTE); Candida tropicalis NOT DETECTED (NOT DETECTE); Cryptococcus neoformans/gattii NOT DETECTED (NOT DETECTE); Enterobacter cloacae complex NOT DETECTED (NOT DETECTE); Enterococcus faecalis NOT DETECTED (NOT DETECTE); Enterococcus faecium NOT DETECTED (NOT DETECTE); Haemophilus influenzae NOT DETECTED (NOT DETECTE); Klebsiella aerogenes NOT DETECTED (NOT DETECTE); Klebsiella pneumoniae group NOT DETECTED (NOT DETECTE); Listeria monocytogenes NOT DETECTED (NOT DETECTE); Neisseria meningitidis NOT DETECTED (NOT DETECTE); Proteus spp. NOT DETECTED (NOT DETECTE); Pseudomonas aeruginosa NOT DETECTED (NOT DETECTE); Salmonella spp. NOT DETECTED (NOT DETECTE); Serratia marcescens NOT DETECTED (NOT DETECTE); Staphylococcus epidermidis NOT DETECTED (NOT DETECTE); Staphylococcus lugdunensis NOT DETECTED (NOT DETECTE); Staphylococcus spp. NOT DETECTED (NOT DETECTE); Stenotrophomonas maltophilia NOT DETECTED (NOT DETECTE); Streptococcus agalactiae NOT DETECTED (NOT DETECTE); Streptococcus pneumoniae NOT DETECTED (NOT DETECTE); Streptococcus pyogenes NOT DETECTED (NOT DETECTE); Streptococcus spp. NOT DETECTED (NOT DETECTE)
[2024-03-17 08:18] LABS: Hematocrit 34.7 % (36.0-48.0); Mean Corpuscular HGB Conc 31.7 g/dL (29.9-35.2); Mean Corpuscular Volume 94.6 fL (81.0-99.0); Mean Platelet Volume 11.7 fL (9.5-13.5); Platelet Count 105 10^3/uL (150-450); Red Blood Count 3.67 10^6/uL (4.20-5.40); Red Cell Distribution Width 12.5 % (11.0-15.0); White Blood Count 7.8 10^3/uL (4.0-11.0)
[2024-03-17 08:33] LABS: Alanine Aminotransferase 18 U/L (14-59); Albumin Globulin Ratio 0.7; Albumin Level 2.2 g/dL (3.4-5.0); Alkaline Phosphatase 46 U/L (46-116); Anion Gap 11.4; Aspartate Amino Transferase 16 U/L (15-37); BUN Creatinine Ratio 23.7; Bilirubin Total 1.1 mg/dL (0.2-1.0); Calcium 7.8 mg/dL (8.5-10.1); Carbon Dioxide 25.5 mmol/L (21.0-32.0); Chloride 103 mmol/L (98-107); Estimated GFR (African America 54 (>=60); Estimated GFR (Non-African Ame 44 (>=60); Globulin 3.3 g/dL; Glucose 130 mg/dL (74-106); Potassium 3.9 mmol/L (3.5-5.1); Sodium 136 mmol/L (136-145); Total Protein 5.5 g/dL (6.4-8.2)
[2024-03-17 08:43] LABS: Band Neutrophils Absolute 0.3 10^3/uL (0.0-0.3); Lymphocytes Absolute Manual 0.23 10^3/uL (1.20-3.80); Monocytes Absolute Manual 0.39 10^3/uL (0.30-0.80); Segmented Neut Absolute Manual 6.86 10^3/uL (1.4-6.5)
[2024-03-17 09:05] LABS: C. Difficile PCR NEGATIVE (NEGATIVE)
[2024-03-17 09:05] LABS: Source Blood
[2024-03-17 09:06] LABS: CTX-M NOT DETECTED (NOT DETECTE); IMP NOT DETECTED (NOT DETECTE); KPC NOT DETECTED (NOT DETECTE); NDM NOT DETECTED (NOT DETECTE); OXA-48-like NOT DETECTED (NOT DETECTE); VIM NOT DETECTED (NOT DETECTE); mcr-1 NOT DETECTED (NOT DETECTE)
[2024-03-17 09:08] LABS: Enterobacterales DETECTED (NOT DETECTE)
[2024-03-17] MEDS: CLOPIDOGREL BISULFATE 75 MG TABLET PO (09:08)
[2024-03-17] MEDS: FLUOXETINE HCL 20 MG CAPSULE 40 MG PO (09:09)
[2024-03-17] MEDS: MONTELUKAST SODIUM 10 MG TABLET PO (09:10)
[2024-03-17] MEDS: CARVEDILOL 25 MG TABLET PO ×2 (09:10→20:33)
--- NOTE | 2024-03-17 10:30 | P.HP_ITS ---
HPI H&P: HPI History of Present Illness Chief complaint: NAUSEA/VOMITING, UTI, Sepsis Narrative: 78-year-old female presented to the hospital with nausea, occasional vomiting along with generalized aches/pain/weakness and feeling sick for about 1 week. She also reports dysuria, suprapubic pain, decreased urination. She also had increased stool frequency/watery diarrhea for 1 week. Patient was febrile earlier today. She is unsure if she was running a fever at home. Her workup in ED was consistent with sepsis secondary to pyelonephritis. Patient was admitted overnight and was treated with IV fluids, IV Rocephin. She feels a little bit better but did not notice any significant/considerable improvement in her symptoms.Earlier today, she felt short of breath and developed hypoxia briefly. Resolved now. CTA ordered as elevated d dimer on presentation - no evidence of PE. Patient has large ventral abdominal hernia and she thinks her symptoms were caused by her hernia. She is supposed to be scheduled for outpatient hernia repair. Opioid HPI Opioid Management Most Recent Opioid Data: Last Pain Scale 1 03/17/24 03:40 Last Pain Assessment 03/17/24 10:09 Last MAR Pain Assessment 03/17/24 09:08 Last ORT Total Score 0 03/16/24 21:20 Last ORT Risk Category Low Risk 03/16/24 21:20 Review of Systems ROS Status of ROS 10 or more systems reviewed and unremark able except as noted in history and below [facility] Medical History (Updated 03/17/24 @ 10:42 by Shaikh Nara MD) Ventral hernia without obstruction or gangrene ?K43.9 - Ventral hernia without obstruction or gangrene (ICD-10) CKD (chronic kidney disease), stage II ?N18.2 - Chronic kidney disease, stage 2 (mild) (ICD-10) HTN (hypertension) ?I10 - Essential (primary) hypertension (ICD-10) HLD (hyperlipidemia) ?E78.5 - Hyperlipidemia, unspecified (ICD-10) CAD (coronary artery disease) ?I25.10 - Atherosclerotic heart disease of [place] coronary artery without angina pectoris (ICD-10) Meds Home Medications and Allergies Home Medications ?Medication ?Instructions ?Recorded ?Confirmed ?Type candesartan 32 mg tablet 16 mg PO BID 03/16/24 03/16/24 History carvedilol 25 mg tablet 25 mg PO BID 03/16/24 03/16/24 History clopidogrel 75 mg tablet 75 mg PO DAILY 03/16/24 03/16/24 History fluoxetine 40 mg capsule 40 mg PO DAILY 03/16/24 03/16/24 History montelukast 10 mg tablet 10 mg PO DAILY 03/16/24 03/16/24 History rosuvastatin 40 mg tablet 40 mg PO DAILY 03/16/24 03/16/24 History trazodone 50 mg tablet 50 mg PO QPM 03/16/24 03/16/24 History Allergies Allergy/AdvReac Type Severity Reaction Status Date / Time Penicillins Allergy Severe Cramping Verified 03/16/24 18:01 of the Muscles Sulfa (Sulfonamide Allergy Severe Swelling Verified 03/16/24 18:01 Antibiotics) of Lip/Tongue/Throat Exam Constitutional Vital Signs, click to edit/add: Last Vital Signs Temp 101.8 F H 03/17/24 09:08 Pulse 71 03/17/24 10:00 Resp 15 03/17/24 09:10 BP 152/55 H 03/17/24 07:51 Pulse Ox 94 L 03/17/24 09:10 O2 Del Method Nasal Cannula 03/17/24 09:06 O2 Flow Rate 2 03/17/24 06:14 Documenting provider has reviewed patient's vital signs: yes Common normals: no apparent distress and oriented x3 General appearance: cooperative Respiratory Common normals: normal respiratory effort and clear to auscultation bilaterally Effort & inspection: able to speak in complete sentences Auscultation: clear to auscultation bilaterally Cardio Common normals: regular rate, S1 normal heart sound and S2 normal heart sound Rate: regular rate Heart sounds: S1 normal and S2 normal GI Common normals: soft to palpation and no hepatosplenomegaly Palpation: soft, tender Details: other (suprapubic), no hepatosplenomegaly and hernia ventral Extremity Common normals: no clubbing, cyanosis or edema Neuro Common normals: oriented x3, moves all extremities and no focal motor deficits Psych Common normals: mental status grossly normal, denies hallucinations, denies homicidal ideation and denies suicidal ideation Results Labs Labs: Short CBC 03/16/24 03/17/24 Range/Units 18:05 07:40 WBC 10.9 7.8 (4.0-11.0) 10^3/uL Hgb 13.0 11.0 L (12.0-16.0) g/dL Hct 39.9 34.7 L (36.0-48.0) % Plt Count 139 L 105 L (150-450) 10^3/uL BMP 03/16/24 03/17/24 18:05 07:40 Sodium 136 136 Potassium 4.0 3.9 Chloride 101 103 Carbon Dioxide 25.9 25.5 BUN 28.0 H 28.0 H Creatinine 1.41 H 1.18 H Glucose 142 H 130 H Calcium 9.0 7.8 L Liver Function 03/16/24 03/17/24 Range/Units 18:05 07:40 Total Bilirubin 1.7 H 1.1 H (0.2-1.0) mg/dL AST 15 16 (15-37) U/L ALT 24 18 (14-59) U/L Alkaline Phosphatase 54 46 (46-116) U/L Albumin 2.8 L 2.2 L (3.4-5.0) g/dL Urine 03/16/24 Range/Units 18:25 Urine Color Yellow (YELLOW) Urine Clarity Sl cloudy (CLEAR) Urine pH 6.0 (5.0-9.0) Ur Specific [place] 1.025 (1.005-1.025) Urine Protein 100 A (NEG/TRACE) mg/dL Urine Glucose (UA) Negative (NEGATIVE) mg/dL ABG ABG results: 03/16/24 18:05 VBG pH 7.485 H VBG pCO2 32.7 L Assessment and Plan Assessment and Plan (1) Sepsis: Assessment and Plan: SIRS (HR,> 90, RR> 20, Temp 101.9) due to E colit, UTI. Continue with IV fluids, continue with IV Rocephin. Follow-up blood and urine cultures. Monitor hemodynamics. Qualifiers: Sepsis type: Escherichia coli Sepsis acute organ dysfunction status: without acute organ dysfunction Qualified Code(s): A41.51 - Sepsis due to Escherichia coli [E. coli] (2) E coli bacteremia: Assessment and Plan: Initial blood cultures positive for E. coli. Final sensitivities are pending. Continue with Rocephin. (3) Pyelonephritis due to Escherichia coli: Assessment and Plan: Patient presented with pyelonephritis secondary to E. coli. Final cultures are pending. Continue with IV Rocephin (4) Nausea & vomiting: Assessment and Plan: Supportive care. Zofran as needed. Secondary to pyelonephritis. Qualifiers: Vomiting type: unspecified Qualified Code(s): R11.2 - Nausea with vomiting, unspecified (5) Shortness of breath: Assessment and Plan: Patient felt slightly SOB in morning. CTA ordered - No PE Resolved. (6) CAD (coronary artery disease): Assessment and Plan: Status post PCI over 10 years ago. On Plavix. Stable. No chest pain/shortness of breath or evidence of active cardiac ischemia. Qualifiers: Coronary Disease-Associated Artery/Lesion type: [place] artery [place] vs. transplanted heart: [place] heart Associated angina: without angina Qualified Code(s): I25.10 - Atherosclerotic heart disease of [place] coronary artery without angina pectoris (7) HTN (hypertension): Assessment and Plan: Continue with home blood pressure medications. Blood pressure is stable. Qualifiers: Hypertension type: primary hypertension Qualified Code(s): I10 - Essential (primary) hypertension (8) CKD (chronic kidney disease), stage II: Assessment and Plan: Mildly elevated serum creatinine. More or less at baseline. Monitor. (9) HLD (hyperlipidemia): Assessment and Plan: c/w statin Qualifiers: Hyperlipidemia type: other hyperlipidemia Qualified Code(s): E78.49 - Other hyperlipidemia (10) Ventral hernia without obstruction or gangrene: Assessment and Plan: no evidence of obstruction/gangrene. Outpatient f/u (11) Elevated d-dimer: Assessment and Plan: CTA negative for PE, consolidation Plan c/w IVF, IV abx. Require inpatient management and treatment for her acute illness as presented with sepsis, pyelonephritis. She was febrile this morning and anticipated to require >2 MN of continued inpatient treatment for close monitoring, IVF and IV abx administration Urinary Catheter Management Urinary Catheter Management Straight: Cath placed during this visit: yes Urethral indwelling: No Insertion date: 03/16/24 Insertion time: 18:28
[2024-03-17] MEDS: CEFTRIAXONE 1,000 MG in 0.9 % SODIUM CHLORIDE 50 ML 100 MG IV (17:31)
[2024-03-17] MEDS: TRAZODONE HCL 50 MG TABLET PO (20:33)
[2024-03-18] VITALS (18 sets, daily range): BP systolic 116–168; BP diastolic 55–72; PULSE 63–85; TEMP 36.7–37.7; O2SAT 91–95
[2024-03-18] MEDS: 0.9 % SODIUM CHLORIDE 1,000 ML 100 ML IV (03:30)
[2024-03-18] MEDS: ACETAMINOPHEN 325 MG TABLET 650 MG PO ×2 (05:05→14:35)
[2024-03-18 05:24] LABS: Basophils Percent Auto 0.4 % (0.2-2.0); Eosinophils Percent Auto 0.2 % (0.9-7.0); Hematocrit 34.6 % (36.0-48.0); Hemoglobin 10.9 g/dL (12.0-16.0); Immature Granulocytes Abs Auto 0.04 10^3/uL (0.00-0.03); Immature Granulocytes Pct Auto 0.5 % (0.0-0.5); Lymphocytes Absolute Auto 0.4 10^3/uL (1.2-3.8); Lymphocytes Percent Auto 5.4 % (20.5-60.0); Mean Corpuscular HGB Conc 31.5 g/dL (29.9-35.2); Mean Corpuscular Hemoglobin 29.6 pg (26.7-34.0); Mean Platelet Volume 11.7 fL (9.5-13.5); Monocytes Absolute Auto 0.7 10^3/uL (0.3-0.8); Monocytes Percent Auto 9.1 % (1.7-12.0); Neutrophils Absolute Auto 6.9 10^3/uL (1.4-6.5); Neutrophils Percent Auto 84.4 % (43.0-75.0); Platelet Count 121 10^3/uL (150-450); Red Blood Count 3.68 10^6/uL (4.20-5.40); Red Cell Distribution Width 12.5 % (11.0-15.0); White Blood Count 8.2 10^3/uL (4.0-11.0)
[2024-03-18 05:54] LABS: Alanine Aminotransferase 16 U/L (14-59); Albumin Globulin Ratio 0.6; Albumin Level 2.3 g/dL (3.4-5.0); Alkaline Phosphatase 48 U/L (46-116); Anion Gap 12.8; Aspartate Amino Transferase 15 U/L (15-37); BUN Creatinine Ratio 21.8; Bilirubin Total 0.8 mg/dL (0.2-1.0); Calcium 8.6 mg/dL (8.5-10.1); Carbon Dioxide 22.7 mmol/L (21.0-32.0); Chloride 103 mmol/L (98-107); Estimated GFR (African America 58 (>=60); Estimated GFR (Non-African Ame 48 (>=60); Globulin 3.6 g/dL; Glucose 122 mg/dL (74-106); Potassium 3.5 mmol/L (3.5-5.1); Sodium 135 mmol/L (136-145); Total Protein 5.9 g/dL (6.4-8.2)
--- NOTE | 2024-03-18 08:03 | CM.NOTE ---
Important Message From Medicare discussed with pt, pt verbalizes understanding and signs paper. Original given to pt and copy placed on pt's chart.
[2024-03-18] MEDS: FLUOXETINE HCL 20 MG CAPSULE 40 MG PO (09:12)
[2024-03-18] MEDS: ENOXAPARIN SODIUM 30 MG/0.3 ML SYRINGE SUBQ (09:12)
[2024-03-18] MEDS: CLOPIDOGREL BISULFATE 75 MG TABLET PO (09:12)
[2024-03-18] MEDS: CARVEDILOL 25 MG TABLET PO ×2 (09:13→21:05)
[2024-03-18] MEDS: MONTELUKAST SODIUM 10 MG TABLET PO (09:13)
--- NOTE | 2024-03-18 09:54 | PM.IMPN1 ---
Progress Note: A&P Assessment and Plan (1) Sepsis: Assessment and Plan: Resolved. Continue with IV Rocephin. Continue with gentle IV hydration. Follow-up blood and urine cultures. Qualifiers: Sepsis type: Escherichia coli Sepsis acute organ dysfunction status: without acute organ dysfunction Qualified Code(s): A41.51 - Sepsis due to Escherichia coli [E. coli] (2) E coli bacteremia: Assessment and Plan: Follow-up final sensitivities. Continue with IV Rocephin. (3) Pyelonephritis due to Escherichia coli: Assessment and Plan: On IV Rocephin and IV fluids. Follow-up urine and blood cultures. (4) Nausea & vomiting: Assessment and Plan: Improved. Tolerating oral diet. But reports decreased oral intake and poor appetite. Qualifiers: Vomiting type: unspecified Qualified Code(s): R11.2 - Nausea with vomiting, unspecified (5) Shortness of breath: Assessment and Plan: Resolved. On room air. (6) CAD (coronary artery disease): Assessment and Plan: Continue with home medications. No active cardiac ischemia. Stable Qualifiers: Coronary Disease-Associated Artery/Lesion type: [place] artery [place] vs. transplanted heart: [place] heart Associated angina: without angina Qualified Code(s): I25.10 - Atherosclerotic heart disease of [place] coronary artery without angina pectoris (7) HTN (hypertension): Assessment and Plan: Continue with home medications. Blood pressure is at goal. Qualifiers: Hypertension type: primary hypertension Qualified Code(s): I10 - Essential (primary) hypertension (8) CKD (chronic kidney disease), stage II: Assessment and Plan: Monitor creatinine. (9) HLD (hyperlipidemia): Assessment and Plan: Continue with statin. Qualifiers: Hyperlipidemia type: other hyperlipidemia Qualified Code(s): E78.49 - Other hyperlipidemia (10) Ventral hernia without obstruction or gangrene: Assessment and Plan: No evidence of obstruction or gangrene. Outpatient follow-up (11) Elevated d-dimer: Assessment and Plan: Likely due to sepsis. No evidence of PE on CTA Plan Continue with IV fluids and IV antibiotics. Follow-up urine and blood cultures. Will benefit from continued IV antibiotic therapy because of bacteremia high risk of relapse if transition to oral antibiotics prematurely. Need continued inpatient monitoring to ensure clinical improvement and progression. Internal Medicine - PN: Subj Subjective Interval history: Patient seen and examined. Afebrile. Tolerating oral diet but reports oral intake. She feels weak and tired. Overall feels better compared to yesterday. Exam Constitutional Vital Signs, click to edit/add: Last Vital Signs Temp 98.0 F 03/18/24 08:00 Pulse 68 03/18/24 08:00 Resp 18 03/18/24 08:00 BP 152/64 H 03/18/24 08:00 Pulse Ox 94 L 03/18/24 08:00 O2 Del Method Room Air 03/18/24 08:00 O2 Flow Rate 2 03/17/24 06:14 Documenting provider has reviewed patient's vital signs: yes Common normals: no apparent distress and oriented x3 General appearance: cooperative Respiratory Common normals: normal respiratory effort and clear to auscultation bilaterally Effort & inspection: able to speak in complete sentences Auscultation: clear to auscultation bilaterally Cardio Common normals: regular rate, S1 normal heart sound and S2 normal heart sound Rate: regular rate Heart sounds: S1 normal and S2 normal GI Common normals: soft to palpation and no hepatosplenomegaly Palpation: soft, no hepatosplenomegaly and hernia ventral Extremity Common normals: no clubbing, cyanosis or edema Neuro Common normals: oriented x3, moves all extremities and no focal motor deficits Psych Common normals: mental status grossly normal, denies hallucinations, denies homicidal ideation and denies suicidal ideation Internal Medicine - PN: Obj Da Labs Labs: Laboratory Results - last 24 hr 03/18/24 04:30 WBC 8.2 RBC 3.68 L Hgb 10.9 L Hct 34.6 L MCV 94.0 MCH 29.6 MCHC 31.5 RDW 12.5 Plt Count 121 L MPV 11.7 Neut % (Auto) 84.4 H Lymph % (Auto) 5.4 L [place] % (Auto) 9.1 Eos % (Auto) 0.2 L Baso % (Auto) 0.4 Neut # (Auto) 6.9 H Lymph # (Auto) 0.4 L [place] # (Auto) 0.7 Eos # (Auto) 0.0 Baso # (Auto) 0.0 Abs Immat Gran (auto) 0.04 H Imm/Tot Granulo (auto) 0.5 Sodium 135 L Potassium 3.5 Chloride 103 Carbon Dioxide 22.7 Anion Gap 12.8 BUN 24.0 H Creatinine 1.10 H Est GFR ( Amer) 58 L Est GFR (Non-Af Amer) 48 L BUN/Creatinine Ratio 21.8 Glucose 122 H Calcium 8.6 Total Bilirubin 0.8 AST 15 ALT 16 Alkaline Phosphatase 48 Total Protein 5.9 L Albumin 2.3 L Globulin 3.6 Albumin/Globulin Ratio 0.6 Urinary Catheter Management Urinary Catheter Management Straight: Cath placed during this visit: yes Urethral indwelling: No Insertion date: 03/16/24 Insertion time: 18:28
--- NOTE | 2024-03-18 10:45 | CM.NOTE ---
Rounds made with Dr. Bains, no discharge today. Continue IV antibiotics and PT for strengthening.
[2024-03-18] MEDS: LOSARTAN POTASSIUM 50 MG TABLET PO (10:53)
--- NOTE | 2024-03-18 14:59 | SWNOTE1 ---
SW checked therapy notes and pt did well with PT/OT, plan is to discharge home once medically stable.
[2024-03-18] MEDS: 0.9 % SODIUM CHLORIDE 250 ML 10 ML IV (18:21)
[2024-03-18] MEDS: CEFTRIAXONE 1,000 MG in 0.9 % SODIUM CHLORIDE 50 ML 100 MG IV (18:21)
[2024-03-18] MEDS: ALPRAZOLAM 0.5 MG TABLET PO (19:49)
[2024-03-18] MEDS: TRAZODONE HCL 50 MG TABLET PO (21:05)
[2024-03-19] VITALS (15 sets, daily range): BP systolic 147–178; BP diastolic 73–82; PULSE 69–84; TEMP 36.9–37.5; O2SAT 87–95
[2024-03-19] MEDS: HYDRALAZINE HCL 20 MG/ML VIAL 10 MG IVP (00:18)
--- NOTE | 2024-03-19 01:40 | PC.NURSE ---
Patient put credit control manager light and complained of feeling short of breath will in the bathroom. SPO2 was checked and patient was 88% on room air after returning from BR. Oxygen reapplied and oxygen returned to 93% on 2L NC. Patient then complained of wheezing. Audable expiratory wheezes noticed and DR notified. Orders placed for breathing treatment
[2024-03-19] MEDS: IPRATROPIUM/ALBUTEROL SULFATE 3 ML AMPUL.NEB IH ×2 (01:56→10:45)
--- NOTE | 2024-03-19 04:55 | PC.NURSE ---
patient states she does not feel short of breath since breathing treatment
[2024-03-19 05:11] LABS: Basophils Percent Auto 0.4 % (0.2-2.0); Eosinophils Absolute Auto 0.1 10^3/uL (0.0-0.7); Eosinophils Percent Auto 1.1 % (0.9-7.0); Hematocrit 33.4 % (36.0-48.0); Hemoglobin 10.7 g/dL (12.0-16.0); Immature Granulocytes Abs Auto 0.04 10^3/uL (0.00-0.03); Immature Granulocytes Pct Auto 0.5 % (0.0-0.5); Lymphocytes Absolute Auto 0.7 10^3/uL (1.2-3.8); Lymphocytes Percent Auto 8.5 % (20.5-60.0); Mean Corpuscular Hemoglobin 30.6 pg (26.7-34.0); Mean Corpuscular Volume 95.4 fL (81.0-99.0); Mean Platelet Volume 12.3 fL (9.5-13.5); Monocytes Absolute Auto 0.8 10^3/uL (0.3-0.8); Neutrophils Absolute Auto 6.3 10^3/uL (1.4-6.5); Neutrophils Percent Auto 79.5 % (43.0-75.0); Platelet Count 126 10^3/uL (150-450); Red Cell Distribution Width 12.6 % (11.0-15.0); White Blood Count 7.9 10^3/uL (4.0-11.0)
[2024-03-19 05:40] LABS: Alanine Aminotransferase 39 U/L (14-59); Albumin Globulin Ratio 0.6; Albumin Level 2.2 g/dL (3.4-5.0); Alkaline Phosphatase 52 U/L (46-116); Anion Gap 12.8; Aspartate Amino Transferase 43 U/L (15-37); BUN Creatinine Ratio 26.6; Bilirubin Total 0.5 mg/dL (0.2-1.0); Calcium 8.7 mg/dL (8.5-10.1); Carbon Dioxide 22.1 mmol/L (21.0-32.0); Chloride 107 mmol/L (98-107); Estimated GFR (African America >60 (>=60); Estimated GFR (Non-African Ame 58 (>=60); Globulin 3.5 g/dL; Glucose 134 mg/dL (74-106); Potassium 3.9 mmol/L (3.5-5.1); Sodium 138 mmol/L (136-145); Total Protein 5.7 g/dL (6.4-8.2)
--- NOTE | 2024-03-19 10:13 | P.DS_ITS ---
DS: Providers Provider Date of admission: 03/17/24 09:52 Primary care physician: FLETCHER BARTON MD Admitting clinician: Shaikh Nara Attending physician on admission: Shaikh Nara Consults: 03/17/24 06:29 Occupational Therapy Eval and Treat Routine Reason for consultation: Ambulatory dysfunction/weakness Physical Therapy Eval and Treat Routine Reason for consultation: Ambulatory dysfunction/weakness Attending physician on discharge: Shaikh Nara Discharging clinician: Shaikh Nara Anticipated date of discharge: 03/19/24 DS: Diagnosis Discharge Diagnosis (1) Sepsis: Assessment and plan: Secondary to E. coli/pyelonephritis. Resolved. Qualifiers: Sepsis type: Escherichia coli Sepsis acute organ dysfunction status: without acute organ dysfunction Qualified Code(s): A41.51 - Sepsis due to Escherichia coli [E. coli] (2) E coli bacteremia: Assessment and plan: E. coli bacteremia likely secondary to UTI. Treated with Rocephin. Will discharge on oral Ceftin. (3) Pyelonephritis due to Escherichia coli: Assessment and plan: Bilateral pyelonephritis secondary to E. coli. Treated with Rocephin. Will discharge on oral Ceftin (4) Nausea & vomiting: Assessment and plan: Resolved Qualifiers: Vomiting type: unspecified Qualified Code(s): R11.2 - Nausea with vomiting, unspecified (5) Shortness of breath: Assessment and plan: Resolved (6) CAD (coronary artery disease): Assessment and plan: Stable. Qualifiers: Coronary Disease-Associated Artery/Lesion type: [place] artery [place] vs. transplanted heart: [place] heart Associated angina: without angina Qualified Code(s): I25.10 - Atherosclerotic heart disease of [place] coronary artery without angina pectoris (7) HTN (hypertension): Assessment and plan: Stable. Continue with home medications. Qualifiers: Hypertension type: primary hypertension Qualified Code(s): I10 - Essential (primary) hypertension (8) CKD (chronic kidney disease), stage II: Assessment and plan: Renal function at baseline. Monitor (9) HLD (hyperlipidemia): Assessment and plan: Continue with statin. Qualifiers: Hyperlipidemia type: other hyperlipidemia Qualified Code(s): E78.49 - Other hyperlipidemia (10) Ventral hernia without obstruction or gangrene: Assessment and plan: No obstruction or gangrene. Outpatient follow-up (11) Elevated d-dimer: Assessment and plan: No evidence of PE on CTA. DS: Summary Hospital Course Hospital Course: 78-year-old female presented with nausea, vomiting, abdominal pain and dysuria. She was admitted for sepsis secondary to bilateral pyelonephritis. Her urine and blood cultures are positive for E. coli. She was started on IV fluids, IV Rocephin. Patient's clinical show improved over the course of admission. She is stable for discharge on oral Ceftin for 10 days. Patient is to follow-up with PCP in 1 to 2 weeks. Time Spent with Patient Time attestation: Total time spent providing and/or coordinating discharge services: Exam Constitutional Vital Signs, click to edit/add: Last Vital Signs Temp 98.5 F 03/19/24 04:55 Pulse 77 03/19/24 09:59 Resp 18 03/19/24 04:55 BP 147/73 H 03/19/24 04:55 Pulse Ox 93 L 03/19/24 09:59 O2 Del Method Nasal Cannula 03/19/24 09:59 O2 Flow Rate 2 03/19/24 04:55 DS: Data Data Completed and Pending Labs on day of discharge: Labs from last 24 hours 03/19/24 04:17 WBC 7.9 RBC 3.50 L Hgb 10.7 L Hct 33.4 L MCV 95.4 MCH 30.6 MCHC 32.0 RDW 12.6 Plt Count 126 L MPV 12.3 Neut % (Auto) 79.5 H Lymph % (Auto) 8.5 L [place] % (Auto) 10.0 Eos % (Auto) 1.1 Baso % (Auto) 0.4 Neut # (Auto) 6.3 Lymph # (Auto) 0.7 L [place] # (Auto) 0.8 Eos # (Auto) 0.1 Baso # (Auto) 0.0 Abs Immat Gran (auto) 0.04 H Imm/Tot Granulo (auto) 0.5 Sodium 138 Potassium 3.9 Chloride 107 Carbon Dioxide 22.1 Anion Gap 12.8 BUN 25.0 H Creatinine 0.94 Est GFR ( Amer) >60 Est GFR (Non-Af Amer) 58 L BUN/Creatinine Ratio 26.6 Glucose 134 H Calcium 8.7 Total Bilirubin 0.5 AST 43 H ALT 39 Alkaline Phosphatase 52 Total Protein 5.7 L Albumin 2.2 L Globulin 3.5 Albumin/Globulin Ratio 0.6 Preliminary micro results at discharge 03/16/24 18:14 Blood Culture Result 1 - Preliminary Blood Escherichia coli 03/16/24 18:17 - Preliminary Blood Escherichia coli 03/16/24 18:25 Urine Culture - Preliminary Urine,Clean Catch Escherichia coli Discharge Plan Discharge Disposition: Home, Self-Care Condition: Good Discharge Medications: New cefuroxime axetil 500 mg tablet 500 mg PO BID 10 Days Qty: 20 0RF Continued candesartan 32 mg tablet 16 mg PO BID carvedilol 25 mg tablet 25 mg PO BID clopidogrel 75 mg tablet 75 mg PO DAILY fluoxetine 40 mg capsule 40 mg PO DAILY montelukast 10 mg tablet 10 mg PO DAILY rosuvastatin 40 mg tablet 40 mg PO DAILY trazodone 50 mg tablet 50 mg PO QPM Activity: increase activity as tolerated Diet: advance to your usual diet Print Language: [place]ian Forms: Portal Instructions Follow Up Appointments: PCP in 1-2 weeks
[2024-03-19] MEDS: FLUOXETINE HCL 20 MG CAPSULE 40 MG PO (10:47)
[2024-03-19] MEDS: ACETAMINOPHEN 325 MG TABLET 650 MG PO (10:47)
[2024-03-19] MEDS: MONTELUKAST SODIUM 10 MG TABLET PO (10:47)
[2024-03-19] MEDS: CLOPIDOGREL BISULFATE 75 MG TABLET PO (10:48)
[2024-03-19] MEDS: CARVEDILOL 25 MG TABLET PO (10:48)
[2024-03-19] MEDS: LOSARTAN POTASSIUM 50 MG TABLET PO (10:48)
--- NOTE | 2024-03-19 11:22 | CM.NOTE ---
Rounds made with Dr. Bains, pt will discharge to home today. No discharge needs identified.
--- NOTE | 2024-03-20 14:33 | CM.DCFOLLOWU ---
Person spoke with: patient How are you feeling? well How is your pain? no pain Did you understand your discharge instructions? yes Do you have any questions about your discharge instructions? no Were you given any prescriptions at discharge? yes, is going to pick it up now Were you able to get your prescriptions filled? going now Do you understand how to take your medications as ordered? yes Do you have any questions about your follow up appointment and do you plan to keep your follow up appointment? no questions, has not called Dr. Kemp office yet, but will do that Is there anything else that you would like to discuss? no Questions/Comments/Concerns/Other: no
== END 2024-03-19 12:30 | disposition home or self-care (01) | DRG 872 ==
LOC: ER 20:06 → ICU 20:57 → MS 03-17 09:56
PROVIDERS: Emergency Medicine Emergency Medical Services; Registered Nurse; Admitting Provider Internal Medicine; Emergency Provider Emergency Medicine; PCP Internal Medicine; Visit Provider Internal Medicine
DX: A41.51 Sepsis due to Escherichia coli [E. coli] (principal); N12 Tubulo-interstitial nephritis, not specified as acute or chronic; K43.9 Ventral hernia without obstruction or gangrene; I12.9 Hypertensive chronic kidney disease with stage 1 through stage 4 chronic kidney disease, or unspecified chronic kidney disease; N18.2 Chronic kidney disease, stage 2 (mild); E78.5 Hyperlipidemia, unspecified; I25.10 Atherosclerotic heart disease of native coronary artery without angina pectoris; J44.9 Chronic obstructive pulmonary disease, unspecified; R79.1 Abnormal coagulation profile; R11.2 Nausea with vomiting, unspecified; R06.02 Shortness of breath; Z79.899 Other long term (current) drug therapy; Z79.02 Long term (current) use of antithrombotics/antiplatelets; Z87.442 Personal history of urinary calculi
CPT/HCPCS: 36415; 71046; 71275; 74176; 80053; 81001; 82800; 83605; 84145; 84484; 85007; 85025; 85027; 85378; 85610; 87040; 87045; 87046; 87086; 87150; 87186; 87427; 87493; 93005; 94640; 94761; 96361; 96365; 96366; 96372; 96375; 97161; 97165; 99285; G0378; Q9967